=== PATIENT | male | born 1960 | race Caucasian/White ===

== ENCOUNTER 2017-02-13 07:42 | Outpatient (CLI) | payer OTHER ==
[~2017-02-13 07:42] MED LIST: DULO-31 PO; PANT40TA4 PO
[2017-02-13 08:13] LABS: BASOPHILS % (AUTO) 0.3 % (0-1); EOSINOPHILS # (AUTO) 0.6 X10'3 (0-0.9); EOSINOPHILS % (AUTO) 7.3 % (0-6); HEMATOCRIT 42.8 % (42.0-52.0); HEMOGLOBIN 14.4 g/dl (14.0-17.9); LYMPHOCYTES # (AUTO) 2.4 X10'3 (1.1-4.8); LYMPHOCYTES % (AUTO) 31.7 % (21-51); MEAN CORPUSCULAR HEMOGLOBIN 31.5 PG (27.0-31.0); MEAN CORPUSCULAR HGB CONC 33.5 % (33.0-36.5); MEAN CORPUSCULAR VOLUME 93.8 FL (78-98); MEAN PLATELET VOLUME 8.4 FL (7.4-10.4); MONOCYTES # (AUTO) 0.6 X10'3 (0-0.9); MONOCYTES % (AUTO) 7.6 % (2-12); NEUTROPHILS % (AUTO) 53.1 % (42-75); PLATELET COUNT 263 X10'3 (140-440); RED BLOOD COUNT 4.56 X10'6 (4.70-6.10); RED CELL DISTRIBUTION WIDTH 12.7 % (11.5-14.5); WHITE BLOOD COUNT 7.6 X10'3 (4.5-11.0)
[2017-02-13 08:28] LABS: CLARITY,URINE CLEAR (Clear); COLOR,URINE YELLOW (Yellow); GLUCOSE, URINE NEGATIVE (Neg); KETONES,URINE NEGATIVE (Neg); LEUKOCYTE ESTERASE ,URINE NEGATIVE (Neg); NITRITES, URINE NEGATIVE (Neg); OCCULT BLOOD,URINE NEGATIVE (Neg); PROTEIN,URINE NEGATIVE (Neg); UROBILINOGEN,URINE 0.2 E.U/dL (0.2-1.0)
[2017-02-13 08:30] LABS: UA COLLECTION TYPE NON-SPECIFIED
[2017-02-13 08:47] LABS: ALANINE AMINOTRANSFERASE 66 U/L (12-78); ALBUMIN 4.1 G/DL (3.4-5.0); ALBUMIN/GLOBULIN RATIO 1.1 (1.1-1.5); ALKALINE PHOSPHATASE 74 IU/L (46-116); ANION GAP 11 (8-16); ASPARTATE AMINO TRANSFERASE 41 U/L (10-37); BILIRUBIN,TOTAL 0.6 MG/DL (0.1-1.0); BLOOD UREA NITROGEN 15 MG/DL (7-18); BUN/CREATININE RATIO 12.6 (5.4-32.0); CALCIUM 9.4 MG/DL (8.5-10.1); CHLORIDE 104 MMOL/L (99-107); CHOLESTEROL 244 MG/DL (0-200); CREATININE 1.19 MG/DL (0.60-1.10); GLUCOSE 143 MG/DL (70-104); HDL CHOLESTEROL 41 MG/DL (35-60); LDL CHOLESTEROL 166 MG/DL (50-100); POTASSIUM 3.9 MMOL/L (3.5-5.1); SODIUM 141 MMOL/L (135-145); TOTAL CARBON DIOXIDE 25.8 MMOL/L (24-32); TOTAL PROTEIN 7.9 G/DL (6.4-8.2); TRIGLYCERIDES 232 MG/DL (20-135); eGFR 63 ML/MIN
[2017-02-14 13:11] LABS: MICROALB/CRT, RATIO 10.5 mg/g creat (0.0-30.0)
[2017-02-19] MEDS ORDERED: CELE200C PO (09:58)
[2017-02-19] MEDS ORDERED: METF500T7 PO (09:58)
== END 2017-02-13 23:59 | disposition home or self-care (01) ==
LOC: LAB 07:42
PROVIDERS: ATTEND Family Medicine
DX: E11.9 Type 2 diabetes mellitus without complications (principal); K42.9 Umbilical hernia without obstruction or gangrene; E29.1 Testicular hypofunction; J45.909 Unspecified asthma, uncomplicated
CPT/HCPCS: 36415; 80053; 80061; 81003; 82043; 82570; 83036; 84402; 84403; 84439; 84443; 85025; 85610; 87088

== ENCOUNTER 2017-02-20 05:54 | Day surgery (SDC) | payer OTHER ==
[~2017-02-20] VITALS: Ht 172.7 cm; Wt 83.9 kg
[2017-02-20] VITALS (14 sets, daily range): BP systolic 124–183; BP diastolic 75–119
[~2017-02-20 05:54] MED LIST changes: +CELE200C PO; +METF500T7 PO; +cefazolin/dext.iso 2gm/50ml 50 ML IV ONE; +famotidine 20mg tablet PO ONE; +ringers solution, lacted 1,000 ML IV SCH
[2017-02-20] MEDS ORDERED: BUPIVAcaine/PF 2.5 mg/ml (0.25%) 30ml vial ONE (06:11)
[2017-02-20] MEDS ORDERED: ceFAZolin 1000mg inj ONE ×2 (06:11→06:19)
[2017-02-20] MEDS ORDERED: midazolam 2 mg/2 ml injection ONE (06:44)
[2017-02-20] MEDS ORDERED: fentaNYL /PF 50mcg/ml 5ml ampule ONE (06:45)
[2017-02-20] MEDS ORDERED: propofol inj 20 ML IV ONE (06:47)
[2017-02-20] MEDS ORDERED: dexamethasone sod phosphate 4mg/ml inj. ONE (06:47)
[2017-02-20] MEDS ORDERED: neostigmine methylsulfate 1 MG/ML 10ml vial ONE (06:47)
[2017-02-20] MEDS ORDERED: rocuronium 10mg/ml inj IV ONE (06:47)
[2017-02-20] MEDS ORDERED: LIDOcaine 2% (20mg/ml) 5ml vial ONE (06:47)
[2017-02-20] MEDS ORDERED: glycopyrrolate 0.2mg/ml inj ONE (06:47)
[2017-02-20] MEDS ORDERED: ringers solution, lacted 1,000 ML IV SCH (06:51)
[2017-02-20] MEDS ORDERED: sevoflurane 250ml liquid IH ONE (06:53)
[2017-02-20] MEDS ORDERED: hydrALAZINE 20mg/ml inj. IV PRN (06:55)
[2017-02-20] MEDS ORDERED: ondansetron/PF 4mg/2ml inj IV PRN (06:55)
[2017-02-20] MEDS ORDERED: labetalol 5mg/ml 20ml inj. IV PRN (06:55)
[2017-02-20] MEDS ORDERED: morphine sulfate 8 MG/ML SYRINGE IV PRN (06:55)
[2017-02-20] MEDS ORDERED: ondansetron/PF 4mg/2ml inj ONE (07:10)
[2017-02-20] MEDS ORDERED: cefazolin/dext.iso 2gm/50ml 50 ML IV ONE (07:19)
[2017-02-20] MEDS ORDERED: diphenhydrAMINE 50 mg/ml inj IM ONE (09:45)
[2017-02-20] MEDS ORDERED: labetalol 20mg/4ml (5mg/ml) syringe IV PRN (09:46)
== END 2017-02-20 11:30 | disposition home or self-care (01) ==
LOC: PAS 05:54
PROVIDERS: ATTEND Surgery
DX: K42.9 Umbilical hernia without obstruction or gangrene (principal); E11.9 Type 2 diabetes mellitus without complications; K21.9 Gastro-esophageal reflux disease without esophagitis; G47.33 Obstructive sleep apnea (adult) (pediatric); I10 Essential (primary) hypertension; E66.9 Obesity, unspecified; Z88.8 Allergy status to other drugs, medicaments and biological substances; Z98.890 Other specified postprocedural states; Z80.3 Family history of malignant neoplasm of breast; Z68.28 Body mass index [BMI] 28.0-28.9, adult; Z79.84 Long term (current) use of oral hypoglycemic drugs; Z79.899 Other long term (current) drug therapy
CPT/HCPCS: 49585; 82948; C1713; C1758; C1781; J0690; J1100; J1200; J2001; J2250; J2270; J2405; J2704; J2710; J3010; J3490; J7120; A7000

== ENCOUNTER 2017-08-14 14:02 | Outpatient (CLI) | payer OTHER ==
[~2017-08-14 14:02] MED LIST changes: -cefazolin/dext.iso 2gm/50ml 50 ML IV ONE; -famotidine 20mg tablet PO ONE; -ringers solution, lacted 1,000 ML IV SCH
== END 2017-08-14 23:59 | disposition home or self-care (01) ==
LOC: RAD 14:02
PROVIDERS: ATTEND Family Medicine
DX: M50.21 Other cervical disc displacement, high cervical region (principal); R90.82 White matter disease, unspecified; I10 Essential (primary) hypertension; E11.9 Type 2 diabetes mellitus without complications; J45.909 Unspecified asthma, uncomplicated
CPT/HCPCS: 70551; 72141

== ENCOUNTER → 2017-10-16 | Outpatient (CLI) | payer OTHER ==
[2017-10-16 09:02] LABS: BASOPHILS % (AUTO) 0.5 % (0-1); EOSINOPHILS # (AUTO) 0.6 X10'3 (0-0.9); EOSINOPHILS % (AUTO) 8.2 % (0-6); HEMATOCRIT 41.3 % (42.0-52.0); HEMOGLOBIN 14.3 g/dl (14.0-17.9); LYMPHOCYTES # (AUTO) 1.7 X10'3 (1.1-4.8); LYMPHOCYTES % (AUTO) 22.8 % (21-51); MEAN CORPUSCULAR HEMOGLOBIN 32.1 PG (27.0-31.0); MEAN CORPUSCULAR HGB CONC 34.5 % (33.0-36.5); MEAN CORPUSCULAR VOLUME 93.1 FL (78-98); MEAN PLATELET VOLUME 8.5 FL (7.4-10.4); MONOCYTES # (AUTO) 0.5 X10'3 (0-0.9); MONOCYTES % (AUTO) 6.8 % (2-12); NEUTROPHILS # (AUTO) 4.5 X10'3 (1.8-7.7); NEUTROPHILS % (AUTO) 61.7 % (42-75); PLATELET COUNT 259 X10'3 (140-440); RED BLOOD COUNT 4.44 X10'6 (4.70-6.10); RED CELL DISTRIBUTION WIDTH 13.3 % (11.5-14.5); WHITE BLOOD COUNT 7.3 X10'3 (4.5-11.0)
[2017-10-16 09:33] LABS: HEMOGLOBIN A1C 6.9 % (4.5-6.2)
[2017-10-16 09:50] LABS: ALANINE AMINOTRANSFERASE 78 U/L (12-78); ALBUMIN 3.9 G/DL (3.4-5.0); ALBUMIN/GLOBULIN RATIO 1.1 (1.1-1.5); ALKALINE PHOSPHATASE 83 IU/L (46-116); ANION GAP 9 (8-16); ASPARTATE AMINO TRANSFERASE 56 U/L (10-37); BILIRUBIN,TOTAL 0.5 MG/DL (0.1-1.0); BLOOD UREA NITROGEN 11 MG/DL (7-18); BUN/CREATININE RATIO 9.2 (5.4-32.0); CALCIUM 9.3 MG/DL (8.5-10.1); CHLORIDE 106 MMOL/L (99-107); CHOL/HDL RATIO 5.7 (0.00-4.99); CHOLESTEROL 240 MG/DL (0-200); CREATININE 1.19 MG/DL (0.60-1.10); GLUCOSE 147 MG/DL (70-104); HDL CHOLESTEROL 42 MG/DL (35-60); LDL CHOLESTEROL 169 MG/DL (50-100); PHOSPHORUS 2.9 MG/DL (2.3-4.5); POTASSIUM 4.1 MMOL/L (3.5-5.1); SODIUM 138 MMOL/L (135-145); TOTAL CARBON DIOXIDE 23.1 MMOL/L (24-32); TOTAL PROTEIN 7.5 G/DL (6.4-8.2); TRIGLYCERIDES 149 MG/DL (20-135); eGFR 63 ML/MIN
== END | disposition home or self-care (01) ==
LOC: LAB 08:29
PROVIDERS: ATTEND Family Medicine
DX: E11.9 Type 2 diabetes mellitus without complications (principal); E29.1 Testicular hypofunction; I10 Essential (primary) hypertension; J45.909 Unspecified asthma, uncomplicated; Z80.42 Family history of malignant neoplasm of prostate; Z98.890 Other specified postprocedural states
CPT/HCPCS: 36415; 80053; 80061; 83036; 84100; 84153; 84402; 84403; 84439; 84443; 84550; 85025; 86140

== ENCOUNTER 2018-03-03 02:26 | Inpatient (IN) | payer OTHER | END 2018-03-08 16:20 | disposition home or self-care (01) | LOC: ER 02:26 → MED 3N 03-07 10:35 → ED HOLD 04:19 → CICU 2S 05:57 | PROC: 0212093 Bypass Coronary Artery, Three Arteries from Coronary Artery with Autologous Venous Tissue, Open Approach (ICD-10-PCS; principal; 2018-03-03 07:15) | PROC: 02100Z9 Bypass Coronary Artery, One Artery from Left Internal Mammary, Open Approach (ICD-10-PCS; 2018-03-03 07:15) | PROC: 06BP4ZZ Excision of Right Saphenous Vein, Percutaneous Endoscopic Approach (ICD-10-PCS; 2018-03-03 07:15) | DX: I21.4 Non-ST elevation (NSTEMI) myocardial infarction (principal); I25.110 Atherosclerotic heart disease of native coronary artery with unstable angina pectoris; E11.9 Type 2 diabetes mellitus without complications; E86.0 Dehydration ==

== ENCOUNTER 2018-03-21 15:57 | Emergency (ER) | payer OTHER ==
[~2018-03-21] VITALS: Ht 172.7 cm; Wt 75.0 kg
[~2018-03-21 15:57] MED LIST changes: +ACET-1 PO; +ASPI-1071 PO; +COL100C PO; +COR3.125T PO; +LISI-604 PO
[2018-03-21 16:20] VITALS: BP 103/75
[2018-03-21 16:23] LABS: BASOPHILS % (AUTO) 0.3 % (0-1); EOSINOPHILS # (AUTO) 0.5 X10'3 (0-0.9); EOSINOPHILS % (AUTO) 5.9 % (0-6); HEMATOCRIT 31.6 % (42.0-52.0); HEMOGLOBIN 10.4 g/dl (14.0-17.9); LYMPHOCYTES % (AUTO) 23.9 % (21-51); MEAN CORPUSCULAR HEMOGLOBIN 31.2 PG (27.0-31.0); MEAN CORPUSCULAR VOLUME 94.4 FL (78-98); MEAN PLATELET VOLUME 8.2 FL (7.4-10.4); MONOCYTES # (AUTO) 0.8 X10'3 (0-0.9); MONOCYTES % (AUTO) 9.3 % (2-12); NEUTROPHILS # (AUTO) 5.2 X10'3 (1.8-7.7); NEUTROPHILS % (AUTO) 60.6 % (42-75); PLATELET COUNT 544 X10'3 (140-440); RED BLOOD COUNT 3.35 X10'6 (4.70-6.10); RED CELL DISTRIBUTION WIDTH 15.9 % (11.5-14.5); WHITE BLOOD COUNT 8.6 X10'3 (4.5-11.0)
[2018-03-21 16:38] LABS: ALANINE AMINOTRANSFERASE 27 U/L (12-78); ALBUMIN 3.4 G/DL (3.4-5.0); ALBUMIN/GLOBULIN RATIO 0.9 (1.1-1.5); ALKALINE PHOSPHATASE 90 IU/L (46-116); ANION GAP 11 (8-16); ASPARTATE AMINO TRANSFERASE 16 U/L (10-37); BILIRUBIN,TOTAL 0.6 MG/DL (0.1-1.0); BLOOD UREA NITROGEN 14 MG/DL (7-18); BUN/CREATININE RATIO 12.3 (5.4-32.0); CALCIUM 9.4 MG/DL (8.5-10.1); CHLORIDE 104 MMOL/L (99-107); CREATININE 1.14 MG/DL (0.60-1.10); GLUCOSE 92 MG/DL (70-104); INR 1.1 INR; PARTIAL THROMBOPLASTIN TIME 30 SECONDS (22-32); POTASSIUM 4.1 MMOL/L (3.5-5.1); PROTHROMBIN TIME 10.8 SECONDS (9.0-12.0); SODIUM 137 MMOL/L (135-145); TOTAL CARBON DIOXIDE 21.9 MMOL/L (24-32); TOTAL PROTEIN 7.2 G/DL (6.4-8.2); eGFR 66 ML/MIN
[2018-03-22] MEDS ORDERED: CARV3.122 PO (14:21)
[2018-03-22] MEDS ORDERED: ASPI-1130 PO (14:23)
[2018-03-22] MEDS ORDERED: LISI2.5T2 PO (14:23)
[2018-03-23] MEDS ORDERED: FERR324T4 PO (14:54)
[2018-03-23] MEDS ORDERED: NITR0.4T51 SL (14:54)
== END 2018-03-21 17:15 | disposition home or self-care (01) ==
LOC: ER 15:57
DX: D64.9 Anemia, unspecified (principal); K62.5 Hemorrhage of anus and rectum; J45.909 Unspecified asthma, uncomplicated; E11.9 Type 2 diabetes mellitus without complications; Z88.5 Allergy status to narcotic agent; Z79.84 Long term (current) use of oral hypoglycemic drugs; Z79.82 Long term (current) use of aspirin; Z79.899 Other long term (current) drug therapy; Z98.890 Other specified postprocedural states
CPT/HCPCS: 36415; 80053; 85025; 85610; 85730; 99283

== ENCOUNTER 2018-03-22 09:50 | Inpatient (IN) | payer OTHER | END 2018-03-23 15:54 | disposition home or self-care (01) | LOC: ER 09:50 → ED HOLD 11:19 → MED 3N 13:22 ==

== ENCOUNTER 2018-03-29 10:05 | Outpatient (CLI) | payer OTHER ==
[~2018-03-29 10:05] MED LIST changes: -ASPI-1071 PO; +ASPI-1130 PO; +CARV3.122 PO; -CELE200C PO; -COL100C PO; -COR3.125T PO; +FERR324T4 PO; -LISI-604 PO; +LISI2.5T2 PO; +NITR0.4T51 SL
[2018-03-29 10:40] LABS: BASOPHILS % (AUTO) 0.3 % (0-1); EOSINOPHILS % (AUTO) 12.3 % (0-6); HEMATOCRIT 34.5 % (42.0-52.0); HEMOGLOBIN 11.4 g/dl (14.0-17.9); LYMPHOCYTES # (AUTO) 1.8 X10'3 (1.1-4.8); LYMPHOCYTES % (AUTO) 22.8 % (21-51); MEAN CORPUSCULAR HEMOGLOBIN 30.9 PG (27.0-31.0); MEAN CORPUSCULAR HGB CONC 33.1 % (33.0-36.5); MEAN CORPUSCULAR VOLUME 93.1 FL (78-98); MEAN PLATELET VOLUME 8.2 FL (7.4-10.4); MONOCYTES # (AUTO) 0.5 X10'3 (0-0.9); MONOCYTES % (AUTO) 6.8 % (2-12); NEUTROPHILS # (AUTO) 4.5 X10'3 (1.8-7.7); NEUTROPHILS % (AUTO) 57.8 % (42-75); PLATELET COUNT 478 X10'3 (140-440); RED BLOOD COUNT 3.71 X10'6 (4.70-6.10); WHITE BLOOD COUNT 7.8 X10'3 (4.5-11.0)
[2018-03-29 11:10] LABS: % IRON SATURATION 13 % (11-46); IRON 45 UG/DL (53-167); TOTAL IRON BINDING CAPACITY 359 UG/DL (259-388)
[2018-03-29 11:17] LABS: ALANINE AMINOTRANSFERASE 26 U/L (12-78); ALBUMIN 3.5 G/DL (3.4-5.0); ALBUMIN/GLOBULIN RATIO 0.9 (1.1-1.5); ALKALINE PHOSPHATASE 91 IU/L (46-116); ANION GAP 11 (8-16); ASPARTATE AMINO TRANSFERASE 16 U/L (10-37); BILIRUBIN,TOTAL 0.5 MG/DL (0.1-1.0); BLOOD UREA NITROGEN 14 MG/DL (7-18); BUN/CREATININE RATIO 13.5 (5.4-32.0); CALCIUM 9.5 MG/DL (8.5-10.1); CHLORIDE 104 MMOL/L (99-107); CHOL/HDL RATIO 3.8 (0.00-4.99); CHOLESTEROL 183 MG/DL (0-200); CREATININE 1.04 MG/DL (0.60-1.10); GLUCOSE 115 MG/DL (70-104); HDL CHOLESTEROL 48 MG/DL (35-60); LDL CHOLESTEROL 114 MG/DL (50-100); POTASSIUM 4.1 MMOL/L (3.5-5.1); SODIUM 139 MMOL/L (135-145); TOTAL CARBON DIOXIDE 24.5 MMOL/L (24-32); TOTAL PROTEIN 7.6 G/DL (6.4-8.2); TRIGLYCERIDES 142 MG/DL (20-135); eGFR 73 ML/MIN
[2018-03-29 11:47] LABS: FERRITIN 159 NG/ML (26-388)
[2018-03-30 08:17] LABS: TRANSFERRIN 280 mg/dL (200-370)
[2018-03-31 09:16] LABS: TESTOSTERONE, FREE, DIRECT 2.4 pg/mL (7.2-24.0)
== END 2018-03-29 23:59 | disposition home or self-care (01) ==
LOC: LAB 10:05
PROVIDERS: ATTEND Family Medicine
DX: E78.5 Hyperlipidemia, unspecified (principal); I10 Essential (primary) hypertension; E11.9 Type 2 diabetes mellitus without complications; D50.0 Iron deficiency anemia secondary to blood loss (chronic); I25.2 Old myocardial infarction; J45.909 Unspecified asthma, uncomplicated; R53.82 Chronic fatigue, unspecified; Z98.890 Other specified postprocedural states; Z88.5 Allergy status to narcotic agent
CPT/HCPCS: 36415; 80053; 80061; 82728; 83540; 83550; 84402; 84403; 84439; 84443; 84466; 85025

== ENCOUNTER 2018-03-30 08:00 | Outpatient (CLI) | payer OTHER | END 2018-03-30 23:59 | disposition home or self-care (01) | LOC: DIABETIC 08:00 → EDSTATUS 12:20 → DIABETIC 23:59 | PROVIDERS: ATTEND Family Medicine | DX: E11.9 Type 2 diabetes mellitus without complications (principal); Z95.1 Presence of aortocoronary bypass graft; R53.83 Other fatigue | CPT/HCPCS: G0108 ==

== ENCOUNTER 2018-03-31 10:14 | Outpatient (CLI) | payer OTHER | END 2018-03-31 23:59 | disposition home or self-care (01) | LOC: CARD DIAG 10:14 | PROVIDERS: ATTEND Internal Medicine Interventional Cardiology | DX: I34.0 Nonrheumatic mitral (valve) insufficiency (principal); I25.10 Atherosclerotic heart disease of native coronary artery without angina pectoris; J45.909 Unspecified asthma, uncomplicated; E11.9 Type 2 diabetes mellitus without complications; Z79.82 Long term (current) use of aspirin; Z79.84 Long term (current) use of oral hypoglycemic drugs | CPT/HCPCS: 93306 ==

== ENCOUNTER 2018-08-13 09:20 | Outpatient (CLI) | payer OTHER ==
[2018-08-13 09:57] LABS: CHOL/HDL RATIO 1.8 (0.00-4.99); CHOLESTEROL 113 MG/DL (0-200); HDL CHOLESTEROL 64 MG/DL (35-60); LDL CHOLESTEROL 37 MG/DL (50-100); TRIGLYCERIDES 174 MG/DL (20-135)
== END 2018-08-13 23:59 | disposition home or self-care (01) ==
LOC: LAB 09:20
DX: E78.5 Hyperlipidemia, unspecified (principal)
CPT/HCPCS: 36415; 80061

== ENCOUNTER 2019-04-22 08:09 | Outpatient (CLI) | payer OTHER ==
[~2019-04-22 08:09] MED LIST changes: +METF500T20 PO; -METF500T7 PO
[2019-04-22 08:49] LABS: BASOPHILS % (AUTO) 0.5 % (0-1); EOSINOPHILS # (AUTO) 0.7 X10'3 (0-0.9); EOSINOPHILS % (AUTO) 9.8 % (0-6); HEMATOCRIT 40.1 % (42.0-52.0); HEMOGLOBIN 13.2 g/dl (14.0-17.9); LYMPHOCYTES # (AUTO) 2.2 X10'3 (1.1-4.8); LYMPHOCYTES % (AUTO) 29.7 % (21-51); MEAN CORPUSCULAR HEMOGLOBIN 30.7 PG (27.0-31.0); MEAN PLATELET VOLUME 8.3 FL (7.4-10.4); MONOCYTES # (AUTO) 0.4 X10'3 (0-0.9); MONOCYTES % (AUTO) 5.6 % (2-12); NEUTROPHILS % (AUTO) 54.4 % (42-75); PLATELET COUNT 255 X10'3 (140-440); RED BLOOD COUNT 4.31 X10'6 (4.70-6.10); WHITE BLOOD COUNT 7.3 X10'3 (4.5-11.0)
[2019-04-22 09:05] LABS: ALANINE AMINOTRANSFERASE 18 U/L (12-78); ALBUMIN 4.2 G/DL (3.4-5.0); ALBUMIN/GLOBULIN RATIO 1.3 (1.1-1.5); ALKALINE PHOSPHATASE 69 IU/L (46-116); ANION GAP 7 (8-16); ASPARTATE AMINO TRANSFERASE 12 U/L (10-37); BLOOD UREA NITROGEN 11 MG/DL (7-18); BUN/CREATININE RATIO 9.1 (5.4-32.0); CALCIUM 9.2 MG/DL (8.5-10.1); CHLORIDE 107 MMOL/L (99-107); CHOL/HDL RATIO 2.6 (0.00-4.99); CHOLESTEROL 138 MG/DL (0-200); CREATININE 1.21 MG/DL (0.60-1.10); GLUCOSE 189 MG/DL (70-104); HDL CHOLESTEROL 54 MG/DL (35-60); LDL CHOLESTEROL 60 MG/DL (50-100); POTASSIUM 4.2 MMOL/L (3.5-5.1); SODIUM 141 MMOL/L (135-145); TOTAL CARBON DIOXIDE 26.9 MMOL/L (24-32); TOTAL PROTEIN 7.4 G/DL (6.4-8.2); TRIGLYCERIDES 214 MG/DL (20-135); eGFR 61 ML/MIN
[2019-04-22 09:08] LABS: HEMOGLOBIN A1C 5.8 % (4.5-6.2)
== END 2019-04-22 23:59 | disposition home or self-care (01) ==
LOC: LAB 08:09
PROVIDERS: ATTEND Family Medicine
DX: E11.9 Type 2 diabetes mellitus without complications (principal); I10 Essential (primary) hypertension; E78.5 Hyperlipidemia, unspecified; K21.9 Gastro-esophageal reflux disease without esophagitis; R53.83 Other fatigue
CPT/HCPCS: 36415; 80053; 80061; 83036; 84402; 84403; 84439; 84443; 85025

== ENCOUNTER 2019-06-23 12:44 | Emergency (ER) | payer OTHER ==
[~2019-06-23] VITALS: Ht 172.7 cm; Wt 80.5 kg
[2019-06-23] MEDS ORDERED: aspirin 325mg tablet PO ONE (12:50)
[2019-06-23] MEDS ORDERED: nitroGLYCERIN 0.4mg SUBLingual tab SL PRN (13:05)
[2019-06-23] MEDS ORDERED: ondansetron/PF 4mg/2ml inj IV ONE ×2 (13:25)
[2019-06-23 14:13] LABS: BASOPHILS % (AUTO) 0.4 % (0-1); EOSINOPHILS # (AUTO) 0.7 X10'3 (0-0.9); EOSINOPHILS % (AUTO) 8.7 % (0-6); HEMATOCRIT 37.3 % (42.0-52.0); HEMOGLOBIN 12.3 g/dl (14.0-17.9); LYMPHOCYTES # (AUTO) 1.8 X10'3 (1.1-4.8); MEAN CORPUSCULAR HEMOGLOBIN 31.7 PG (27.0-31.0); MEAN CORPUSCULAR HGB CONC 33.1 g/dL (33.0-36.5); MEAN CORPUSCULAR VOLUME 95.9 FL (78-98); MEAN PLATELET VOLUME 8.4 FL (7.4-10.4); MONOCYTES # (AUTO) 0.6 X10'3 (0-0.9); MONOCYTES % (AUTO) 7.4 % (2-12); NEUTROPHILS # (AUTO) 4.8 X10'3 (1.8-7.7); NEUTROPHILS % (AUTO) 60.5 % (42-75); PLATELET COUNT 221 X10'3 (140-440); RED BLOOD COUNT 3.89 X10'6 (4.70-6.10); RED CELL DISTRIBUTION WIDTH 13.5 % (11.5-14.5)
[2019-06-23] MEDS ORDERED: famotidine/PF 10 mg/ml inj IV ONE (14:15)
[2019-06-23] MEDS ORDERED: LIDOcaine Viscous 15ml cup MM PRN (14:15)
[2019-06-23] MEDS ORDERED: pantoprazole 40 MG vial IV ONE (14:15)
[2019-06-23] MEDS ORDERED: sucralfate 1gm/10ml UD suspension PO SCH (14:15)
[2019-06-23] MEDS ORDERED: mag hydrox/Alum hydrox/simeth 30ml oral suspension PO ONE (14:15)
--- NOTE | 2019-06-23 14:15 | NUR ---
Dr. Sabillon made aware Pt c/o epigastric pain, denies HUBERT. to enter orders for Pepcid, Protonix and GI cocktail.
[2019-06-23 14:25] LABS: ALANINE AMINOTRANSFERASE 22 U/L (12-78); ALBUMIN 3.8 G/DL (3.4-5.0); ALBUMIN/GLOBULIN RATIO 1.2 (1.1-1.5); ALKALINE PHOSPHATASE 67 IU/L (46-116); ANION GAP 6 (8-16); ASPARTATE AMINO TRANSFERASE 18 U/L (10-37); BILIRUBIN,TOTAL 0.8 MG/DL (0.1-1.0); BLOOD UREA NITROGEN 15 MG/DL (7-18); CALCIUM 9.3 MG/DL (8.5-10.1); CHLORIDE 109 MMOL/L (99-107); CREATININE 1.15 MG/DL (0.60-1.10); GLUCOSE 108 MG/DL (70-104); LIPASE 209 U/L (73-393); POTASSIUM 4.4 MMOL/L (3.5-5.1); SODIUM 141 MMOL/L (135-145); TOTAL CARBON DIOXIDE 25.9 MMOL/L (24-32); TOTAL PROTEIN 6.9 G/DL (6.4-8.2); eGFR 65 ML/MIN
[2019-06-23 15:27] LABS: CHOL/HDL RATIO 1.9 (0.00-4.99); CHOLESTEROL 93 MG/DL (0-200); HDL CHOLESTEROL 48 MG/DL (35-60); LDL CHOLESTEROL 31 MG/DL (50-100); TRIGLYCERIDES 118 MG/DL (20-135)
--- NOTE | 2019-06-23 15:43 | NUR ---
Pt reports feeling better, no pain at this time. Pt ambulated to restroom unassisted and in no obvious distress.
--- NOTE | 2019-06-23 16:09 | NUR ---
Blood drawn from IV for 3 hr. troponin.
[2019-06-23 17:10] VITALS: BP 125/75
== END 2019-06-23 17:05 | disposition home or self-care (01) ==
LOC: ER 12:45 → EEVIPCON 12:45 → ER 17:05
DX: R10.13 Epigastric pain (principal); K21.9 Gastro-esophageal reflux disease without esophagitis; I25.10 Atherosclerotic heart disease of native coronary artery without angina pectoris; I25.2 Old myocardial infarction; J45.909 Unspecified asthma, uncomplicated; E11.9 Type 2 diabetes mellitus without complications; Z95.1 Presence of aortocoronary bypass graft; Z98.890 Other specified postprocedural states; Z88.5 Allergy status to narcotic agent; Z79.82 Long term (current) use of aspirin; Z79.899 Other long term (current) drug therapy
CPT/HCPCS: 36415; 71045; 76700; 80053; 80061; 83690; 84484; 85025; 93005; 96374; 96375; 99285; C9113; J2405; J3490

== ENCOUNTER 2019-11-13 11:20 | Emergency (ER) | payer OTHER ==
[~2019-11-13] VITALS: Ht 172.7 cm; Wt 79.5 kg
[~2019-11-13 11:20] MED LIST changes: -ASPI-1130 PO; +ASPI-1397 PO; +METF-900 PO; -METF500T20 PO; -PANT40TA4 PO; +PANT40TA54 PO
[2019-11-13 11:26] VITALS: BP 111/85
== END 2019-11-13 11:46 | disposition home or self-care (01) ==
LOC: ER 11:21
DX: B34.9 Viral infection, unspecified (principal); Z20.828 Contact with and (suspected) exposure to other viral communicable diseases; J02.9 Acute pharyngitis, unspecified; M79.10 Myalgia, unspecified site; R05 Cough; I25.10 Atherosclerotic heart disease of native coronary artery without angina pectoris; I25.2 Old myocardial infarction; J45.909 Unspecified asthma, uncomplicated; E11.9 Type 2 diabetes mellitus without complications; Z95.1 Presence of aortocoronary bypass graft; Z98.890 Other specified postprocedural states; Z88.5 Allergy status to narcotic agent
CPT/HCPCS: 87635; 99283; C9803

== ENCOUNTER 2020-04-04 09:07 | Outpatient (CLI) | payer BC ==
[~2020-04-04] VITALS: Ht 172.7 cm; Wt 81.8 kg
[2020-04-04 10:58] VITALS: BP 126/71
[2020-04-04 11:02] VITALS: BP 110/72
[2020-04-04 11:05] VITALS: BP 126/79
[2020-04-04 11:08] VITALS: BP 171/93
[2020-04-04 11:09] VITALS: BP 172/98
[2020-04-04 11:10] VITALS: BP 140/64
== END 2020-04-04 23:59 | disposition home or self-care (01) ==
LOC: RAD 09:07
PROVIDERS: ATTEND Internal Medicine Cardiovascular Disease
DX: I34.8 Other nonrheumatic mitral valve disorders (principal); I25.10 Atherosclerotic heart disease of native coronary artery without angina pectoris; E78.5 Hyperlipidemia, unspecified; I21.9 Acute myocardial infarction, unspecified
CPT/HCPCS: 78452; 93017; 93306; A9500

== ENCOUNTER 2020-06-22 08:08 | Outpatient (CLI) | payer BC ==
[2020-06-22 08:33] LABS: BASOPHILS % (AUTO) 0.4 % (0-1); EOSINOPHILS # (AUTO) 0.5 X10'3 (0-0.9); EOSINOPHILS % (AUTO) 7.3 % (0-6); HEMATOCRIT 37.7 % (42.0-52.0); HEMOGLOBIN 12.6 g/dl (14.0-17.9); LYMPHOCYTES # (AUTO) 2.2 X10'3 (1.1-4.8); LYMPHOCYTES % (AUTO) 32.5 % (21-51); MEAN CORPUSCULAR HEMOGLOBIN 31.9 PG (27.0-31.0); MEAN CORPUSCULAR HGB CONC 33.3 g/dL (33.0-36.5); MEAN CORPUSCULAR VOLUME 95.7 FL (78-98); MEAN PLATELET VOLUME 7.7 FL (7.4-10.4); MONOCYTES # (AUTO) 0.5 X10'3 (0-0.9); NEUTROPHILS # (AUTO) 3.4 X10'3 (1.8-7.7); NEUTROPHILS % (AUTO) 51.8 % (42-75); PLATELET COUNT 274 X10'3 (140-440); RED BLOOD COUNT 3.94 X10'6 (4.70-6.10); RED CELL DISTRIBUTION WIDTH 13.1 % (11.5-14.5); WHITE BLOOD COUNT 6.6 X10'3 (4.5-11.0)
[2020-06-22 09:00] LABS: ALANINE AMINOTRANSFERASE 27 U/L (12-78); ALBUMIN/GLOBULIN RATIO 1.3 (1.1-1.5); ALKALINE PHOSPHATASE 75 IU/L (46-116); ANION GAP 8 (8-16); ASPARTATE AMINO TRANSFERASE 14 U/L (10-37); BLOOD UREA NITROGEN 11 MG/DL (7-18); BUN/CREATININE RATIO 9.7 (5.4-32.0); CALCIUM 9.4 MG/DL (8.5-10.1); CHLORIDE 107 MMOL/L (99-107); CHOL/HDL RATIO 1.8 (0.00-4.99); CHOLESTEROL 96 MG/DL (0-200); CREATININE 1.13 MG/DL (0.60-1.10); GLUCOSE 127 MG/DL (70-104); HDL CHOLESTEROL 54 MG/DL (35-60); LDL CHOLESTEROL 32 MG/DL (50-100); POTASSIUM 4.1 MMOL/L (3.5-5.1); SODIUM 141 MMOL/L (135-145); TOTAL CARBON DIOXIDE 26.5 MMOL/L (24-32); TOTAL PROTEIN 7.2 G/DL (6.4-8.2); TRIGLYCERIDES 125 MG/DL (20-135); eGFR 66 ML/MIN
== END 2020-06-22 23:59 | disposition home or self-care (01) ==
LOC: LAB 08:08
PROVIDERS: ATTEND Family Medicine
DX: I10 Essential (primary) hypertension (principal); E11.9 Type 2 diabetes mellitus without complications; E78.5 Hyperlipidemia, unspecified; K21.9 Gastro-esophageal reflux disease without esophagitis; R53.83 Other fatigue
CPT/HCPCS: 80053; 80061; 83036; 84439; 84443; 85025

== ENCOUNTER 2021-02-08 08:07 | Outpatient (CLI) | payer BC ==
[~2021-02-08 08:07] MED LIST changes: +LISI2.5T14 PO; -LISI2.5T2 PO
[2021-02-08 08:56] LABS: BASOPHILS % (AUTO) 0.4 % (0-1); EOSINOPHILS # (AUTO) 0.6 X10'3 (0-0.9); EOSINOPHILS % (AUTO) 8.6 % (0-6); HEMOGLOBIN 12.4 g/dl (14.0-17.9); LYMPHOCYTES # (AUTO) 2.1 X10'3 (1.1-4.8); LYMPHOCYTES % (AUTO) 31.4 % (21-51); MEAN CORPUSCULAR HEMOGLOBIN 31.5 PG (27.0-31.0); MEAN CORPUSCULAR HGB CONC 33.4 g/dL (33.0-36.5); MEAN CORPUSCULAR VOLUME 94.2 FL (78-98); MEAN PLATELET VOLUME 8.2 FL (7.4-10.4); MONOCYTES # (AUTO) 0.5 X10'3 (0-0.9); MONOCYTES % (AUTO) 7.6 % (2-12); NEUTROPHILS # (AUTO) 3.5 X10'3 (1.8-7.7); PLATELET COUNT 265 X10'3 (140-440); RED BLOOD COUNT 3.93 X10'6 (4.70-6.10); RED CELL DISTRIBUTION WIDTH 13.7 % (11.5-14.5); WHITE BLOOD COUNT 6.6 X10'3 (4.5-11.0)
[2021-02-08 09:14] LABS: ALBUMIN 3.9 G/DL (3.4-5.0); ALBUMIN/GLOBULIN RATIO 1.2 (1.1-1.5); ALKALINE PHOSPHATASE 64 IU/L (46-116); ANION GAP 9 (8-16); BILIRUBIN,TOTAL 0.3 MG/DL (0.1-1.0); BLOOD UREA NITROGEN 13 MG/DL (7-18); BUN/CREATININE RATIO 10.4 (5.4-32.0); CALCIUM 9.2 MG/DL (8.5-10.1); CHLORIDE 109 MMOL/L (99-107); CREATININE 1.25 MG/DL (0.60-1.10); GLUCOSE 133 MG/DL (70-104); HDL CHOLESTEROL 54 MG/DL (35-60); LDL CHOLESTEROL 36 MG/DL (50-100); POTASSIUM 4.1 MMOL/L (3.5-5.1); SODIUM 144 MMOL/L (135-145); TOTAL CARBON DIOXIDE 25.7 MMOL/L (24-32); TOTAL PROTEIN 7.2 G/DL (6.4-8.2); eGFR 59 ML/MIN
[2021-02-08 09:16] LABS: ASPARTATE AMINO TRANSFERASE 0 U/L (10-37)
[2021-02-08 09:17] LABS: ALANINE AMINOTRANSFERASE < 6 U/L (12-78)
[2021-02-08 09:31] LABS: HEMOGLOBIN A1C 5.8 % (4.5-6.2)
[2021-02-08 12:07] LABS: CHOLESTEROL 107 MG/DL (0-200); TRIGLYCERIDES 139 MG/DL (20-135)
[2021-02-09 10:59] LABS: % FREE PSA 12.4 % (.); PSA, FREE 0.26 ng/mL
[2021-02-11 22:59] LABS: TESTOSTERONE, FREE, DIRECT 6.2 pg/mL (6.6-18.1)
== END 2021-02-08 23:59 | disposition home or self-care (01) ==
LOC: LAB 08:07
PROVIDERS: ATTEND Family Medicine
DX: E11.9 Type 2 diabetes mellitus without complications (principal); E78.5 Hyperlipidemia, unspecified; K21.9 Gastro-esophageal reflux disease without esophagitis; E29.1 Testicular hypofunction
CPT/HCPCS: 36415; 80053; 80061; 82306; 83036; 84153; 84154; 84402; 84403; 84439; 84443; 85025; 86706

== ENCOUNTER 2021-04-05 06:16 | Day surgery (SDC) | payer BC ==
[~2021-04-05] VITALS: Ht 172.7 cm; Wt 81.8 kg
[2021-04-05 06:27] VITALS: BP 142/85
[2021-04-05] MEDS ORDERED: fentaNYL/PF 50MCG/1 ML 2ML syringe ONE (06:30)
[2021-04-05] MEDS ORDERED: MIDAZolam 1 MG/ML 5ML VIAL ONE (06:30)
[2021-04-05] MEDS ORDERED: LIDOcaine Viscous 15ml cup ONE (06:37)
[2021-04-05] MEDS ORDERED: LOSA25TA96 PO (06:48)
[2021-04-05] MEDS ORDERED: diphenhydrAMINE 50 mg/ml inj ONE (06:52)
[2021-04-05 07:52] VITALS: BP 136/85
[2021-04-05 08:02] VITALS: BP 131/83
[2021-04-05 08:12] VITALS: BP 133/78
[2021-04-05 08:22] VITALS: BP 124/69
== END 2021-04-05 08:50 | disposition home or self-care (01) ==
LOC: GI LAB 06:16
PROVIDERS: ATTEND Internal Medicine Gastroenterology
DX: Z09 Encounter for follow-up examination after completed treatment for conditions other than malignant neoplasm (principal); R11.10 Vomiting, unspecified; K57.30 Diverticulosis of large intestine without perforation or abscess without bleeding; D12.4 Benign neoplasm of descending colon; D12.3 Benign neoplasm of transverse colon; K44.9 Diaphragmatic hernia without obstruction or gangrene; K22.89 Other specified disease of esophagus; K31.7 Polyp of stomach and duodenum; K29.50 Unspecified chronic gastritis without bleeding; K20.80 Other esophagitis without bleeding; J45.990 Exercise induced bronchospasm; E11.9 Type 2 diabetes mellitus without complications; Z95.1 Presence of aortocoronary bypass graft; Z88.5 Allergy status to narcotic agent; Z79.84 Long term (current) use of oral hypoglycemic drugs; Z79.899 Other long term (current) drug therapy
CPT/HCPCS: 43239; 45380; 45385; 99152; 99153; C1773; J1200; J2250; J3010; J7040; Z7512; A4620

== ENCOUNTER 2021-04-24 09:42 | Emergency (ER) | payer BC ==
[~2021-04-24] VITALS: Ht 172.7 cm; Wt 81.0 kg
[~2021-04-24 09:42] MED LIST changes: -FERR324T4 PO; -LISI2.5T14 PO; +LOSA25TA96 PO
[2021-04-24] MEDS ORDERED: iohexol 300mg/ml 100ml inj. ONE (10:04)
[2021-04-24 10:14] LABS: BASOPHILS % (AUTO) 0.3 % (0-1); EOSINOPHILS # (AUTO) 0.5 X10'3 (0-0.9); EOSINOPHILS % (AUTO) 6.8 % (0-6); HEMATOCRIT 39.3 % (42.0-52.0); HEMOGLOBIN 13.1 g/dl (14.0-17.9); LYMPHOCYTES # (AUTO) 1.7 X10'3 (1.1-4.8); LYMPHOCYTES % (AUTO) 26.2 % (21-51); MEAN CORPUSCULAR HEMOGLOBIN 31.7 PG (27.0-31.0); MEAN CORPUSCULAR HGB CONC 33.4 g/dL (33.0-36.5); MEAN CORPUSCULAR VOLUME 94.9 FL (78-98); MEAN PLATELET VOLUME 8.2 FL (7.4-10.4); MONOCYTES # (AUTO) 0.4 X10'3 (0-0.9); MONOCYTES % (AUTO) 6.1 % (2-12); NEUTROPHILS # (AUTO) 4.1 X10'3 (1.8-7.7); NEUTROPHILS % (AUTO) 60.6 % (42-75); PLATELET COUNT 285 X10'3 (140-440); RED BLOOD COUNT 4.15 X10'6 (4.70-6.10); RED CELL DISTRIBUTION WIDTH 13.7 % (11.5-14.5); WHITE BLOOD COUNT 6.7 X10'3 (4.5-11.0)
[2021-04-24 10:43] LABS: CLARITY,URINE CLEAR (Clear); COLOR,URINE YELLOW (Yellow); GLUCOSE, URINE NEGATIVE (Neg); KETONES,URINE NEGATIVE (Neg); LEUKOCYTE ESTERASE ,URINE NEGATIVE (Neg); NITRITES, URINE NEGATIVE (Neg); OCCULT BLOOD,URINE NEGATIVE (Neg); PROTEIN,URINE NEGATIVE (Neg); UROBILINOGEN,URINE 0.2 E.U/dL (0.2-1.0)
[2021-04-24 10:49] LABS: ALANINE AMINOTRANSFERASE 29 U/L (12-78); ALBUMIN 4.4 G/DL (3.4-5.0); ALBUMIN/GLOBULIN RATIO 1.2 (1.1-1.5); ANION GAP 9 (8-16); ASPARTATE AMINO TRANSFERASE 14 U/L (10-37); BILIRUBIN,TOTAL 0.8 MG/DL (0.1-1.0); BLOOD UREA NITROGEN 15 MG/DL (7-18); BUN/CREATININE RATIO 12.4 (5.4-32.0); CALCIUM 9.5 MG/DL (8.5-10.1); CHLORIDE 106 MMOL/L (99-107); CREATININE 1.21 MG/DL (0.60-1.10); GLUCOSE 125 MG/DL (70-104); LIPASE 158 U/L (73-393); POTASSIUM 4.7 MMOL/L (3.5-5.1); SODIUM 140 MMOL/L (135-145); TOTAL CARBON DIOXIDE 25.1 MMOL/L (24-32); eGFR 61 ML/MIN
[2021-04-24 10:50] LABS: UA COLLECTION TYPE URINAL
[2021-04-24 10:51] LABS: RBC,URINE NONE SEEN /HPF (0-2); WBC,URINE NONE SEEN /HPF (0-4)
[2021-04-24 10:52] LABS: BACTERIA,URINE NONE SEEN /HPF (Neg); MUCUS STRANDS MANY /LPF (Neg); SQUAMOUS EPITHELIAL CELL,UR NONE SEEN /LPF (FEW)
--- NOTE | 2021-04-24 10:59 | NUR ---
ATTEMPT EKG, PATIENT NOT CURRENTLY IN ROOM. WILL ATTEMPT AGAIN.
[2021-04-24 12:43] VITALS: BP 127/82
== END 2021-04-24 12:46 | disposition home or self-care (01) ==
LOC: ER 09:43 → EEVIPCON 09:43 → ER 12:46
DX: R10.84 Generalized abdominal pain (principal); R11.10 Vomiting, unspecified; I25.10 Atherosclerotic heart disease of native coronary artery without angina pectoris; I25.2 Old myocardial infarction; J45.909 Unspecified asthma, uncomplicated; E11.9 Type 2 diabetes mellitus without complications; Z98.890 Other specified postprocedural states; Z79.82 Long term (current) use of aspirin; Z79.899 Other long term (current) drug therapy
CPT/HCPCS: 36415; 74176; 80053; 81001; 83690; 84145; 84484; 85025; 93005; 99285; Q9967

== ENCOUNTER 2021-07-12 08:22 | Outpatient (CLI) | payer BC ==
[2021-07-12 08:55] LABS: BASOPHILS % (AUTO) 0.5 % (0-1); EOSINOPHILS # (AUTO) 0.5 X10'3 (0-0.9); EOSINOPHILS % (AUTO) 7.4 % (0-6); HEMATOCRIT 38.7 % (42.0-52.0); HEMOGLOBIN 12.7 g/dl (14.0-17.9); LYMPHOCYTES # (AUTO) 2.1 X10'3 (1.1-4.8); LYMPHOCYTES % (AUTO) 28.8 % (21-51); MEAN CORPUSCULAR HEMOGLOBIN 30.9 PG (27.0-31.0); MEAN CORPUSCULAR HGB CONC 32.9 g/dL (33.0-36.5); MEAN PLATELET VOLUME 8.3 FL (7.4-10.4); MONOCYTES # (AUTO) 0.5 X10'3 (0-0.9); MONOCYTES % (AUTO) 7.3 % (2-12); PLATELET COUNT 276 X10'3 (140-440); RED BLOOD COUNT 4.11 X10'6 (4.70-6.10); RED CELL DISTRIBUTION WIDTH 13.6 % (11.5-14.5); WHITE BLOOD COUNT 7.2 X10'3 (4.5-11.0)
[2021-07-12 08:55] LABS: CLARITY,URINE CLEAR (Clear); COLOR,URINE YELLOW (Yellow); GLUCOSE, URINE NEGATIVE (Neg); KETONES,URINE NEGATIVE (Neg); LEUKOCYTE ESTERASE ,URINE NEGATIVE (Neg); NITRITES, URINE NEGATIVE (Neg); OCCULT BLOOD,URINE NEGATIVE (Neg); PROTEIN,URINE NEGATIVE (Neg); UROBILINOGEN,URINE 0.2 E.U/dL (0.2-1.0)
[2021-07-12 08:57] LABS: UA COLLECTION TYPE CLN CATCH MIDSTREAM
[2021-07-12 09:05] LABS: ALANINE AMINOTRANSFERASE 29 U/L (12-78); ALBUMIN 3.9 G/DL (3.4-5.0); ALBUMIN/GLOBULIN RATIO 1.1 (1.1-1.5); ALKALINE PHOSPHATASE 59 IU/L (46-116); ASPARTATE AMINO TRANSFERASE 12 U/L (10-37); BILIRUBIN,TOTAL 0.5 MG/DL (0.1-1.0); BLOOD UREA NITROGEN 13 MG/DL (7-18); BUN/CREATININE RATIO 11.1 (5.4-32.0); CALCIUM 9.2 MG/DL (8.5-10.1); CHLORIDE 108 MMOL/L (99-107); CHOL/HDL RATIO 2.5 (0.00-4.99); CHOLESTEROL 131 MG/DL (0-200); CREATININE 1.17 MG/DL (0.60-1.10); GLUCOSE 144 MG/DL (70-104); HDL CHOLESTEROL 52 MG/DL (35-60); LDL CHOLESTEROL 58 MG/DL (50-100); POTASSIUM 4.2 MMOL/L (3.5-5.1); SODIUM 143 MMOL/L (135-145); TOTAL PROTEIN 7.3 G/DL (6.4-8.2); TRIGLYCERIDES 143 MG/DL (20-135); eGFR 63 ML/MIN
[2021-07-12 09:07] LABS: ANION GAP 8 (8-16); TOTAL CARBON DIOXIDE 26.6 MMOL/L (24-32)
[2021-07-12 09:16] LABS: HEMOGLOBIN A1C 6.1 % (4.5-6.2)
[2021-07-16 21:58] LABS: TESTOSTERONE, FREE, DIRECT 7.1 pg/mL (6.6-18.1)
== END 2021-07-12 23:59 | disposition home or self-care (01) ==
LOC: LAB 08:22
PROVIDERS: ATTEND Family Medicine
DX: E11.9 Type 2 diabetes mellitus without complications (principal); I10 Essential (primary) hypertension; E78.5 Hyperlipidemia, unspecified; R53.83 Other fatigue; K21.9 Gastro-esophageal reflux disease without esophagitis
CPT/HCPCS: 36415; 80053; 80061; 81003; 82043; 83036; 84402; 84403; 85025

== ENCOUNTER 2022-03-28 12:12 | Day surgery (SDC) | payer BC ==
[~2022-03-28] VITALS: Ht 172.7 cm; Wt 81.8 kg
[2022-03-28 12:15] VITALS: BP 132/85
[2022-03-28] MEDS ORDERED: LOSA25TA41 PO (12:22)
[2022-03-28] MEDS ORDERED: MIDAZolam 1 MG/ML 5ML VIAL ONE (12:39)
[2022-03-28] MEDS ORDERED: fentaNYL/PF 50MCG/1 ML 2ML syringe ONE (12:39)
[2022-03-28 13:55] VITALS: BP 152/92
[2022-03-28 14:05] VITALS: BP 137/84
[2022-03-28 14:15] VITALS: BP 136/90
[2022-03-28 14:25] VITALS: BP 135/77
== END 2022-03-28 14:30 | disposition home or self-care (01) ==
LOC: GI LAB 12:12
PROVIDERS: ATTEND Specialist
DX: Z09 Encounter for follow-up examination after completed treatment for conditions other than malignant neoplasm (principal); D12.0 Benign neoplasm of cecum; D12.3 Benign neoplasm of transverse colon; K63.5 Polyp of colon; K57.30 Diverticulosis of large intestine without perforation or abscess without bleeding; J45.909 Unspecified asthma, uncomplicated; I25.2 Old myocardial infarction; E11.9 Type 2 diabetes mellitus without complications; Z95.1 Presence of aortocoronary bypass graft; Z79.82 Long term (current) use of aspirin; Z79.899 Other long term (current) drug therapy; Z79.84 Long term (current) use of oral hypoglycemic drugs
CPT/HCPCS: 45380; 45385; 99152; 99153; C1889; J2250; J3010; J7030; Z7512; A4620

== ENCOUNTER 2022-06-06 08:28 | Outpatient (CLI) | payer BC ==
[~2022-06-06 08:28] MED LIST changes: +LOSA25TA41 PO; -LOSA25TA96 PO
[2022-06-06 10:09] LABS: BASOPHILS % (AUTO) 0.6 % (0-1); EOSINOPHILS # (AUTO) 0.6 X10'3 (0-0.9); EOSINOPHILS % (AUTO) 7.5 % (0-6); HEMATOCRIT 38.5 % (42.0-52.0); HEMOGLOBIN 12.6 g/dl (14.0-17.9); LYMPHOCYTES # (AUTO) 2.2 X10'3 (1.1-4.8); MEAN CORPUSCULAR HEMOGLOBIN 31.3 PG (27.0-31.0); MEAN CORPUSCULAR HGB CONC 32.9 g/dL (33.0-36.5); MEAN CORPUSCULAR VOLUME 95.2 FL (78-98); MONOCYTES # (AUTO) 0.6 X10'3 (0-0.9); NEUTROPHILS # (AUTO) 4.7 X10'3 (1.8-7.7); NEUTROPHILS % (AUTO) 57.9 % (42-75); PLATELET COUNT 279 X10'3 (140-440); RED BLOOD COUNT 4.04 X10'6 (4.70-6.10); RED CELL DISTRIBUTION WIDTH 13.3 % (11.5-14.5); WHITE BLOOD COUNT 8.1 X10'3 (4.5-11.0)
[2022-06-06 10:31] LABS: ALANINE AMINOTRANSFERASE 42 U/L (12-78); ALBUMIN 3.9 G/DL (3.4-5.0); ALBUMIN/GLOBULIN RATIO 1.2 (1.1-1.5); ALKALINE PHOSPHATASE 64 IU/L (46-116); ANION GAP 9 (8-16); ASPARTATE AMINO TRANSFERASE 23 U/L (10-37); BILIRUBIN,TOTAL 0.3 MG/DL (0.1-1.0); BLOOD UREA NITROGEN 17 MG/DL (7-18); BUN/CREATININE RATIO 12.4 (10.0-20.0); CALCIUM 9.3 MG/DL (8.5-10.1); CHLORIDE 109 MMOL/L (99-107); CREATININE 1.37 MG/DL (0.60-1.10); GLUCOSE 152 MG/DL (70-104); POTASSIUM 3.8 MMOL/L (3.5-5.1); SODIUM 144 MMOL/L (135-145); TOTAL CARBON DIOXIDE 25.8 MMOL/L (24-32); TOTAL PROTEIN 7.2 G/DL (6.4-8.2); eGFR 52 ML/MIN
[2022-06-06 10:32] LABS: % IRON SATURATION 13 % (11-46); IRON 56 UG/DL (53-167); TOTAL IRON BINDING CAPACITY 447 UG/DL (259-388)
[2022-06-06 10:39] LABS: CHOL/HDL RATIO 1.9 (0.00-4.99); CHOLESTEROL 102 MG/DL (0-200); HDL CHOLESTEROL 54 MG/DL (35-60); LDL CHOLESTEROL 30 MG/DL (50-100); TRIGLYCERIDES 133 MG/DL (20-135)
[2022-06-07 08:12] LABS: % FREE PSA 12.5 % (.)
== END 2022-06-06 23:59 | disposition home or self-care (01) ==
LOC: LAB 08:28
PROVIDERS: ATTEND Family Medicine
DX: Z00.01 Encounter for general adult medical examination with abnormal findings (principal); Z12.5 Encounter for screening for malignant neoplasm of prostate; E29.1 Testicular hypofunction; I25.10 Atherosclerotic heart disease of native coronary artery without angina pectoris
CPT/HCPCS: 36415; 73000; 80053; 80061; 82306; 83540; 83550; 84153; 84154; 84402; 84403; 84439; 84443; 85025

== ENCOUNTER 2022-08-13 18:58 | Inpatient (IN) | payer BC ==
[~2022-08-13] VITALS: Ht 172.7 cm; Wt 82.4 kg
[2022-08-13 19:15] LABS: BASOPHILS % (AUTO) 0.5 % (0-1); EOSINOPHILS # (AUTO) 0.5 X10'3 (0-0.9); HEMATOCRIT 39.5 % (42.0-52.0); HEMOGLOBIN 12.9 g/dl (14.0-17.9); LYMPHOCYTES # (AUTO) 2.1 X10'3 (1.1-4.8); LYMPHOCYTES % (AUTO) 29.7 % (21-51); MEAN CORPUSCULAR HEMOGLOBIN 30.9 PG (27.0-31.0); MEAN CORPUSCULAR HGB CONC 32.6 g/dL (33.0-36.5); MEAN CORPUSCULAR VOLUME 94.9 FL (78-98); MEAN PLATELET VOLUME 8.2 FL (7.4-10.4); MONOCYTES # (AUTO) 0.6 X10'3 (0-0.9); MONOCYTES % (AUTO) 7.9 % (2-12); NEUTROPHILS # (AUTO) 3.9 X10'3 (1.8-7.7); NEUTROPHILS % (AUTO) 54.9 % (42-75); PLATELET COUNT 276 X10'3 (140-440); RED BLOOD COUNT 4.16 X10'6 (4.70-6.10); RED CELL DISTRIBUTION WIDTH 14.5 % (11.5-14.5); WHITE BLOOD COUNT 7.1 X10'3 (4.5-11.0)
[2022-08-13 19:30] LABS: ALANINE AMINOTRANSFERASE 33 U/L (12-78); ALBUMIN/GLOBULIN RATIO 1.3 (1.1-1.5); ALKALINE PHOSPHATASE 63 IU/L (46-116); ANION GAP 8 (8-16); ASPARTATE AMINO TRANSFERASE 19 U/L (10-37); BILIRUBIN,TOTAL 0.4 MG/DL (0.1-1.0); BLOOD UREA NITROGEN 17 MG/DL (7-18); BUN/CREATININE RATIO 13.7 (10.0-20.0); CALCIUM 9.6 MG/DL (8.5-10.1); CHLORIDE 106 MMOL/L (99-107); CREATININE 1.24 MG/DL (0.60-1.10); GLUCOSE 154 MG/DL (70-104); POTASSIUM 3.9 MMOL/L (3.5-5.1); SODIUM 138 MMOL/L (135-145); TOTAL CARBON DIOXIDE 23.7 MMOL/L (24-32); TOTAL PROTEIN 7.2 G/DL (6.4-8.2); eGFR 59 ML/MIN
[2022-08-13] MEDS ORDERED: aspirin 81mg tab.chew PO ONE (20:05)
[2022-08-13] MEDS ORDERED: heparin 10,000 units/1 ML INJ IV ONE ×3 (20:05→21:05)
--- NOTE | 2022-08-13 20:42 | NUR ---
NOTIFIED PHARMACY TO VERIFY HEPARIN
[2022-08-13] MEDS ORDERED: heparin 25,000 UNIT/250ml bag 250 ML IV PRN ×2 (20:44→21:05)
[2022-08-13] MEDS ORDERED: heparin 10,000 units/1 ML INJ IV PRN ×2 (20:46→21:05)
[2022-08-13 20:56] LABS: APTT 31 SECONDS (22-32)
[2022-08-13] MEDS ORDERED: dextrose 50%-water 50ml dispensing syringe IV PRN ×2 (21:05)
[2022-08-13] MEDS ORDERED: DEXTROSE 15 GM of carb/4 tabs (each vial/BOTTLE has 4 tablets) PO PRN ×2 (21:05)
[2022-08-13] MEDS ORDERED: glucagon, human recombinant 1mg kit SUBCUT PRN (21:05)
[2022-08-13] MEDS ORDERED: potassium Cl 40MEQ/1/2NS 520ml 520 ML IV PRN (21:05)
[2022-08-13] MEDS ORDERED: potassium Cl 20 mEq SR tablet PO PRN ×2 (21:05)
[2022-08-13] MEDS ORDERED: insulin Lispro (HumaLOG) vial - multi-dose SQ SCH (21:05)
[2022-08-13] MEDS ORDERED: mag hydrox/Alum hydrox/simeth 30ml oral suspension PO PRN (21:05)
[2022-08-13] MEDS ORDERED: ondansetron/PF 4mg/2ml inj IV PRN (21:05)
[2022-08-13] MEDS ORDERED: MESSAGE TO PHARMACY PO ONE (21:05)
[2022-08-13] MEDS ORDERED: acetaminophen 325mg tablet PO PRN (21:05)
[2022-08-13] MEDS ORDERED: magnesium 4gm in 100ml NS 100 ML IV PRN (21:05)
[2022-08-13] MEDS ORDERED: PERFLUTREN PROTEIN-A MICROSPHR (Optison) 0.22 MG/ML 3ML VIAL IV ONE (21:05)
[2022-08-13] MEDS ORDERED: metoprolol tartrate 1mg/ml inj IV PRN (21:10)
[2022-08-13] MEDS ORDERED: aminophylline 250mg/10ml inj. IV PRN (21:10)
[2022-08-13] MEDS ORDERED: regadenoson 0.4mg/5ml syringe IV PRN (21:10)
[2022-08-13] MEDS ORDERED: nitroGLYCERIN 0.4mg SUBLingual tab SL PRN (21:10)
--- NOTE | 2022-08-13 21:20 | NUR ---
SBAR TO RN ON FLOOR. DR. STEPHENS IN WITH PT CURRENTLY. THAN HE WILL BE TRANSFERRED TO THE FLOOR.
--- NOTE | 2022-08-13 21:36 | NUR ---
PAIN FREE HE SAID IT COMES AND GOES VERY QUICKLY CANNOT SAY IF IT IS THE NTG OR JUST HOW FAST IT COMES AND GOES
[2022-08-13 22:00] VITALS: BP 124/71
[2022-08-13] MEDS ORDERED: nitroGLYCERIN 0.4mg/hour patch TD SCH (23:10)
[2022-08-14] VITALS (11 sets, daily range): BP systolic 91–120; BP diastolic 52–79
[2022-08-14 03:20] LABS: BASOPHILS % (AUTO) 0.5 % (0-1); EOSINOPHILS # (AUTO) 0.5 X10'3 (0-0.9); EOSINOPHILS % (AUTO) 5.7 % (0-6); HEMATOCRIT 37.4 % (42.0-52.0); HEMOGLOBIN 12.3 g/dl (14.0-17.9); LYMPHOCYTES # (AUTO) 3.2 X10'3 (1.1-4.8); LYMPHOCYTES % (AUTO) 36.7 % (21-51); MEAN CORPUSCULAR HEMOGLOBIN 30.9 PG (27.0-31.0); MEAN CORPUSCULAR HGB CONC 32.7 g/dL (33.0-36.5); MEAN CORPUSCULAR VOLUME 94.4 FL (78-98); MEAN PLATELET VOLUME 8.5 FL (7.4-10.4); MONOCYTES # (AUTO) 0.7 X10'3 (0-0.9); MONOCYTES % (AUTO) 7.8 % (2-12); NEUTROPHILS # (AUTO) 4.2 X10'3 (1.8-7.7); NEUTROPHILS % (AUTO) 49.3 % (42-75); PLATELET COUNT 259 X10'3 (140-440); RED BLOOD COUNT 3.97 X10'6 (4.70-6.10); RED CELL DISTRIBUTION WIDTH 14.4 % (11.5-14.5); WHITE BLOOD COUNT 8.6 X10'3 (4.5-11.0)
[2022-08-14 03:32] LABS: ALANINE AMINOTRANSFERASE 30 U/L (12-78); ALBUMIN 3.4 G/DL (3.4-5.0); ALBUMIN/GLOBULIN RATIO 1.2 (1.1-1.5); ALKALINE PHOSPHATASE 58 IU/L (46-116); ANION GAP 11 (8-16); ASPARTATE AMINO TRANSFERASE 16 U/L (10-37); BILIRUBIN,TOTAL 0.6 MG/DL (0.1-1.0); BLOOD UREA NITROGEN 20 MG/DL (7-18); BUN/CREATININE RATIO 17.7 (10.0-20.0); CALCIUM 9.3 MG/DL (8.5-10.1); CHLORIDE 107 MMOL/L (99-107); CREATININE 1.13 MG/DL (0.60-1.10); GLUCOSE 118 MG/DL (70-104); POTASSIUM 3.6 MMOL/L (3.5-5.1); SODIUM 141 MMOL/L (135-145); TOTAL CARBON DIOXIDE 22.8 MMOL/L (24-32); TOTAL PROTEIN 6.3 G/DL (6.4-8.2); eGFR 66 ML/MIN
[2022-08-14] MEDS ORDERED: iohexol 350MG/ML 100ml bottle IV ONE ×3 (06:08→07:13)
[2022-08-14] MEDS ORDERED: nitroGLYCERIN-Tridil 50MG/D5W 250 ML IV ONE (06:08)
[2022-08-14] MEDS ORDERED: midazolam 1 mg/ML 2ml injection ONE (06:08)
[2022-08-14] MEDS ORDERED: heparin 1,000unit/ml 10ml vial 10 ML ONE (06:08)
[2022-08-14] MEDS ORDERED: verapamil 2.5 mg/ml inj IV ONE (06:08)
[2022-08-14] MEDS ORDERED: LIDOcaine 1% (10mg/ml) 2ml vial ONE (06:08)
[2022-08-14] MEDS ORDERED: iohexol 350 MG/ML 50ML vial IV ONE (06:08)
[2022-08-14] MEDS ORDERED: heparin 1,000 UNITS/NS 500ml 1,500 ML ONE (06:09)
--- NOTE | 2022-08-14 06:20 | NUR ---
Patient in room PCU 3020. 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 Addendum: 08/14/22 at 0644 by Monalisa Tate RN Amended: Links added.
--- NOTE | 2022-08-14 06:33 | NUR ---
Problems reprioritized. Patient report given, questions answered & plan of care reviewed with Monalisa BELTRAN.
[2022-08-14] MEDS ORDERED: diphenhydrAMINE 50 mg/ml inj ONE (06:52)
[2022-08-14] MEDS ORDERED: pantoprazole 40mg Tablet.DR PO SCH (07:30)
[2022-08-14] MEDS ORDERED: carVEDilol 3.125mg tablet PO SCH (08:00)
[2022-08-14] MEDS ORDERED: K and/or MAG REPLACEMENT MC SCH (08:00)
[2022-08-14] MEDS ORDERED: docusate sod 100mg capsule PO SCH (08:00)
--- NOTE | 2022-08-14 08:45 | NUR ---
Pt back to room, at bedside. Left radial band in place with 15ml air. Pt no distress. Call light in reach.
[2022-08-14] MEDS ORDERED: isosorbide mononitrate 30mg tab.SR.24H PO SCH (08:50)
[2022-08-14 08:54] LABS: CHOL/HDL RATIO 1.6 (0.00-4.99); CHOLESTEROL 87 MG/DL (0-200); HDL CHOLESTEROL 56 MG/DL (35-60); LDL CHOLESTEROL 29 MG/DL (50-100); TRIGLYCERIDES 104 MG/DL (20-135)
[2022-08-14] MEDS ORDERED: EVOL140P3 SUBCUT (09:03)
--- NOTE | 2022-08-14 09:28 | NUR ---
echo at bedside
[2022-08-14] MEDS ORDERED: CARV6.253 PO (15:10)
[2022-08-14] MEDS ORDERED: ISOS30TA84 PO (15:10)
[2022-08-14] MEDS ORDERED: CLOP-32 PO (15:10)
--- NOTE | 2022-08-14 16:32 | NUR ---
All written and verbal orders for D/C given, Activity post radial cath given. Pt stated he had all belongings, Home with family. Addendum: 08/14/22 at 1632 by Monalisa Tate RN Amended: Links added.
[2022-08-14] MEDS ORDERED: carvedilol 6.25mg tablet PO SCH (20:00)
[2022-08-14] MEDS ORDERED: insulin glargine (Lantus) pen - multi-dose SQ SCH (21:00)
[2022-08-15] MEDS ORDERED: aspirin 81mg, enteric-coated 1 TAB TABLET.DR PO SCH (08:00)
[2022-08-15] MEDS ORDERED: losartan 25mg tablet PO SCH (08:00)
[2022-08-15] MEDS ORDERED: pantoprazole 40mg Tablet.DR PO SCH (08:00)
[2022-08-15] MEDS ORDERED: duloxetine 30mg CAPSULE.DR PO SCH (08:00)
[2022-08-16] MEDS ORDERED: METFORMIN ER 500MG PO SCH (08:00)
== END 2022-08-14 16:14 | disposition home or self-care (01) | DRG 287 ==
LOC: EEVIPCON 18:58 → ER 18:58 → ED HOLD 21:10 → PCU 3S 22:00
PROVIDERS: ADMIT Family Medicine; ATTEND Family Medicine
PROC: 4A023N7 Measurement of Cardiac Sampling and Pressure, Left Heart, Percutaneous Approach (ICD-10-PCS; principal; 2022-08-14)
PROC: B2111ZZ Fluoroscopy of Multiple Coronary Arteries using Low Osmolar Contrast (ICD-10-PCS; 2022-08-14)
PROC: B2131ZZ Fluoroscopy of Multiple Coronary Artery Bypass Grafts using Low Osmolar Contrast (ICD-10-PCS; 2022-08-14)
PROC: B2151ZZ Fluoroscopy of Left Heart using Low Osmolar Contrast (ICD-10-PCS; 2022-08-14)
DX: I25.700 Atherosclerosis of coronary artery bypass graft(s), unspecified, with unstable angina pectoris (principal); I25.110 Atherosclerotic heart disease of native coronary artery with unstable angina pectoris; I50.22 Chronic systolic (congestive) heart failure; F32.A Depression, unspecified; E78.5 Hyperlipidemia, unspecified; E11.22 Type 2 diabetes mellitus with diabetic chronic kidney disease; N18.9 Chronic kidney disease, unspecified; J45.909 Unspecified asthma, uncomplicated; Z79.82 Long term (current) use of aspirin; Z79.84 Long term (current) use of oral hypoglycemic drugs; Z80.42 Family history of malignant neoplasm of prostate; Z82.49 Family history of ischemic heart disease and other diseases of the circulatory system; I25.2 Old myocardial infarction; Z83.3 Family history of diabetes mellitus; Z87.11 Personal history of peptic ulcer disease; Z87.442 Personal history of urinary calculi; Z88.5 Allergy status to narcotic agent; Z79.899 Other long term (current) drug therapy
CPT/HCPCS: 93306; 93459; 96365; 96376; 99285; C9607; 36415; 71045; 76937; 80053; 80061; 82948; 83735; 83880; 84484; 85025; 85347; 85610; 85730; 87081; 93005; 99152; 99153; A6258; C1725; C1751; C1769; C1894; G0378; J1200; J1644; J1815; J2250; J3490; J7030; Q9967

== ENCOUNTER 2022-10-02 12:16 | Outpatient (CLI) | payer BC ==
[~2022-10-02 12:16] MED LIST changes: -ACET-1 PO; -CARV3.122 PO; +CARV6.253 PO; +CLOP-32 PO; +EVOL140P3 SUBCUT; +ISOS30TA84 PO; -NITR0.4T51 SL
== END 2022-10-02 23:59 | disposition home or self-care (01) ==
LOC: RAD 12:16
PROVIDERS: ATTEND Family Medicine
DX: S99.912A Unspecified injury of left ankle, initial encounter (principal); S99.922A Unspecified injury of left foot, initial encounter; X58.XXXA Exposure to other specified factors, initial encounter; Y93.89 Activity, other specified; Y92.89 Other specified places as the place of occurrence of the external cause; Y99.8 Other external cause status
CPT/HCPCS: 73610; 73630

== ENCOUNTER → 2023-03-27 | Outpatient (CLI) | payer BC ==
[2023-03-27 09:43] LABS: BASOPHILS % (AUTO) 0.4 % (0-1); EOSINOPHILS # (AUTO) 0.5 X10'3 (0-0.9); EOSINOPHILS % (AUTO) 8.4 % (0-6); HEMATOCRIT 39.7 % (42.0-52.0); HEMOGLOBIN 13.2 g/dl (14.0-17.9); LYMPHOCYTES # (AUTO) 1.6 X10'3 (1.1-4.8); LYMPHOCYTES % (AUTO) 27.1 % (21-51); MEAN CORPUSCULAR HEMOGLOBIN 31.9 PG (27.0-31.0); MEAN CORPUSCULAR HGB CONC 33.4 g/dL (33.0-36.5); MEAN CORPUSCULAR VOLUME 95.5 FL (78-98); MEAN PLATELET VOLUME 8.2 FL (7.4-10.4); MONOCYTES # (AUTO) 0.4 X10'3 (0-0.9); MONOCYTES % (AUTO) 6.8 % (2-12); NEUTROPHILS # (AUTO) 3.4 X10'3 (1.8-7.7); NEUTROPHILS % (AUTO) 57.3 % (42-75); PLATELET COUNT 252 X10'3 (140-440); RED BLOOD COUNT 4.16 X10'6 (4.70-6.10); WHITE BLOOD COUNT 5.8 X10'3 (4.5-11.0)
[2023-03-27 10:18] LABS: ALANINE AMINOTRANSFERASE 36 U/L (12-78); ALBUMIN 3.9 G/DL (3.4-5.0); ALBUMIN/GLOBULIN RATIO 1.1 (1.1-1.5); ALKALINE PHOSPHATASE 75 IU/L (46-116); ANION GAP 11 (8-16); ASPARTATE AMINO TRANSFERASE 26 U/L (10-37); BILIRUBIN,TOTAL 0.9 MG/DL (0.1-1.0); BLOOD UREA NITROGEN 18 MG/DL (7-18); BUN/CREATININE RATIO 14.8 (10.0-20.0); CALCIUM 9.4 MG/DL (8.5-10.1); CHLORIDE 106 MMOL/L (99-107); CHOL/HDL RATIO 1.7 (0.00-4.99); CHOLESTEROL 124 MG/DL (0-200); CREATININE 1.22 MG/DL (0.60-1.10); FREE T4 (FREE THYROXINE) 0.95 NG/DL (0.73-1.40); GLUCOSE 147 MG/DL (70-104); HDL CHOLESTEROL 71 MG/DL (35-60); LDL CHOLESTEROL 35 MG/DL (50-100); POTASSIUM 4.1 MMOL/L (3.5-5.1); SODIUM 139 MMOL/L (135-145); THYROID STIMULATING HORMONE 1.61 ulU/ml (0.34-4.50); TOTAL CARBON DIOXIDE 22.4 MMOL/L (24-32); TOTAL PROTEIN 7.6 G/DL (6.4-8.2); TRIGLYCERIDES 124 MG/DL (20-135); eGFR 60 ML/MIN
== END | disposition home or self-care (01) ==
LOC: LAB 08:49
PROVIDERS: ATTEND Family Medicine
DX: Z00.01 Encounter for general adult medical examination with abnormal findings (principal)
CPT/HCPCS: 36415; 80053; 80061; 82306; 82607; 82746; 84153; 84402; 84403; 84439; 84443; 85025

== ENCOUNTER 2023-05-24 06:52 | Inpatient (IN) | payer BC ==
[~2023-05-24] VITALS: Ht 172.7 cm; Wt 77.3 kg
[2023-05-24 08:31] LABS: ALANINE AMINOTRANSFERASE 29 U/L (12-78); ALBUMIN 3.7 G/DL (3.4-5.0); ALBUMIN/GLOBULIN RATIO 0.9 (1.1-1.5); ALKALINE PHOSPHATASE 79 IU/L (46-116); ANION GAP 10 (8-16); ASPARTATE AMINO TRANSFERASE 15 U/L (10-37); BILIRUBIN,TOTAL 0.6 MG/DL (0.1-1.0); BLOOD UREA NITROGEN 17 MG/DL (7-18); BUN/CREATININE RATIO 13.9 (10.0-20.0); CALCIUM 9.4 MG/DL (8.5-10.1); CHLORIDE 109 MMOL/L (99-107); CREATININE 1.22 MG/DL (0.60-1.10); GLUCOSE 167 MG/DL (70-104); POTASSIUM 4.4 MMOL/L (3.5-5.1); SODIUM 142 MMOL/L (135-145); TOTAL CARBON DIOXIDE 22.7 MMOL/L (24-32); TOTAL PROTEIN 7.7 G/DL (6.4-8.2); eCRCL 59 ML/MIN; eGFR 60 ML/MIN
[2023-05-24 08:32] LABS: C-REACTIVE PROTEIN 2.76 MG/DL (0.0-0.5)
[2023-05-24 08:34] LABS: BASOPHILS % (AUTO) 0.3 % (0-1); EOSINOPHILS # (AUTO) 0.5 X10'3 (0-0.9); EOSINOPHILS % (AUTO) 4.7 % (0-6); HEMATOCRIT 41.4 % (42.0-52.0); HEMOGLOBIN 13.8 g/dl (14.0-17.9); LYMPHOCYTES # (AUTO) 1.4 X10'3 (1.1-4.8); LYMPHOCYTES % (AUTO) 14.6 % (21-51); MEAN CORPUSCULAR HEMOGLOBIN 31.7 PG (27.0-31.0); MEAN CORPUSCULAR HGB CONC 33.3 g/dL (33.0-36.5); MEAN CORPUSCULAR VOLUME 95.3 FL (78-98); MEAN PLATELET VOLUME 8.4 FL (7.4-10.4); MONOCYTES # (AUTO) 0.9 X10'3 (0-0.9); MONOCYTES % (AUTO) 9.3 % (2-12); NEUTROPHILS % (AUTO) 71.1 % (42-75); PLATELET COUNT 264 X10'3 (140-440); RED BLOOD COUNT 4.35 X10'6 (4.70-6.10); RED CELL DISTRIBUTION WIDTH 13.5 % (11.5-14.5); WHITE BLOOD COUNT 9.9 X10'3 (4.5-11.0)
[2023-05-24 09:01] LABS: URIC ACID 3.7 MG/DL (3.5-7.2)
[2023-05-24] MEDS ORDERED: furosemide 10 MG/1 ML 10ml inj IV ONE (11:25)
[2023-05-24] MEDS: furosemide 20 MG/2 ML vial IV ONE (11:25)
[2023-05-24] MEDS ORDERED: potassium Cl 40MEQ/1/2NS 520ml 520 ML IV PRN (12:05)
[2023-05-24] MEDS ORDERED: acetaminophen 325mg tablet PO PRN (12:05)
[2023-05-24] MEDS ORDERED: magnesium 2GM in 50ml NS 50 ML IV PRN (12:05)
[2023-05-24] MEDS ORDERED: potassium Cl 20 mEq SR tablet PO PRN ×2 (12:05)
[2023-05-24] MEDS ORDERED: magnesium Cl slow-release 64mg tablet PO PRN (12:05)
[2023-05-24] MEDS ORDERED: ondansetron/PF 4mg/2ml inj IV PRN ×2 (12:05→19:40)
[2023-05-24] MEDS ORDERED: magnesium 4gm in 100ml NS 100 ML IV PRN (12:05)
[2023-05-24] MEDS ORDERED: DEXTROSE 15 GM of carb/4 tabs (each vial/BOTTLE has 4 tablets) PO PRN ×2 (12:10)
[2023-05-24] MEDS ORDERED: glucagon, human recombinant 1mg kit SUBCUT PRN (12:10)
[2023-05-24] MEDS ORDERED: dextrose 50%-water 50ml dispensing syringe IV PRN ×2 (12:10)
[2023-05-24] MEDS ORDERED: insulin Lispro (HumaLOG) vial - multi-dose SQ SCH (12:10)
[2023-05-24 12:22] LABS: ALBUMIN 3.9 G/DL (3.4-5.0); ANION GAP 13 (8-16); BLOOD UREA NITROGEN 16 MG/DL (7-18); BUN/CREATININE RATIO 14.3 (10.0-20.0); CALCIUM 9.6 MG/DL (8.5-10.1); CHLORIDE 107 MMOL/L (99-107); CREATININE 1.12 MG/DL (0.60-1.10); GLUCOSE 126 MG/DL (70-104); MAGNESIUM 2.2 MG/DL (1.5-2.4); POTASSIUM 4.1 MMOL/L (3.5-5.1); SODIUM 142 MMOL/L (135-145); eCRCL 64 ML/MIN; eGFR 66 ML/MIN
[2023-05-24] MEDS ORDERED: CARV6.253 PO (12:27)
[2023-05-24] MEDS ORDERED: TICA90TA2 PO (12:27)
[2023-05-24] MEDS ORDERED: EMPA10TA PO (12:27)
[2023-05-24] MEDS: normal saline 1000ml 1,000 ML IV SCH (12:30)
[2023-05-24] MEDS: MESSAGE TO PHARMACY PO ONE (13:08)
[2023-05-24 13:51] LABS: HEMOGLOBIN A1C 6.1 % (4.5-6.2)
[2023-05-24] MEDS: acetaminophen w/codeine (30MG) #3 tablet PO PRN (14:13)
[2023-05-24] MEDS ORDERED: GADOTERATE MEGLUMINE 7.5 MMOL/15 ML VIAL IV ONE (14:26)
[2023-05-24] MEDS ORDERED: ampicillin/sulbac 3gm/NS 100ml 100 ML IV SCH (15:00)
[2023-05-24] MEDS: vancomycin/NS 1 GM ADD-VANTAGE 250 ML IV SCH (15:23)
[2023-05-24] MEDS: ampicillin/sulbac 3gm/NS 100ml 100 ML IV SCH (17:44)
[2023-05-24] MEDS: enoxaparin 40mg/0.4ml syringe SQ SCH (19:58)
[2023-05-24] MEDS: acetaminophen 325mg tablet PO PRN (20:31)
[2023-05-24] MEDS: insulin glargine (Lantus) pen - multi-dose SQ SCH (21:00)
[2023-05-24] MEDS: ticagrelor 90mg tablet PO SCH (21:41)
[2023-05-24] MEDS: carvedilol 6.25mg tablet PO SCH (21:41)
[2023-05-24 21:45] VITALS: BP 123/71; PULSE 66; RESP 16; TEMP 98.6; O2SAT 99
[2023-05-25 06:47] LABS: BASOPHILS % (AUTO) 0.5 % (0-1); EOSINOPHILS # (AUTO) 0.6 X10'3 (0-0.9); EOSINOPHILS % (AUTO) 6.3 % (0-6); HEMATOCRIT 36.8 % (42.0-52.0); HEMOGLOBIN 12.5 g/dl (14.0-17.9); LYMPHOCYTES # (AUTO) 1.9 X10'3 (1.1-4.8); LYMPHOCYTES % (AUTO) 22.1 % (21-51); MEAN CORPUSCULAR HEMOGLOBIN 32.4 PG (27.0-31.0); MEAN CORPUSCULAR VOLUME 95.4 FL (78-98); MEAN PLATELET VOLUME 8.6 FL (7.4-10.4); MONOCYTES # (AUTO) 0.7 X10'3 (0-0.9); MONOCYTES % (AUTO) 8.5 % (2-12); NEUTROPHILS # (AUTO) 5.5 X10'3 (1.8-7.7); NEUTROPHILS % (AUTO) 62.6 % (42-75); PLATELET COUNT 237 X10'3 (140-440); RED BLOOD COUNT 3.86 X10'6 (4.70-6.10); RED CELL DISTRIBUTION WIDTH 13.2 % (11.5-14.5); WHITE BLOOD COUNT 8.8 X10'3 (4.5-11.0)
[2023-05-25 07:03] LABS: ALANINE AMINOTRANSFERASE 21 U/L (12-78); ALBUMIN/GLOBULIN RATIO 0.9 (1.1-1.5); ALKALINE PHOSPHATASE 72 IU/L (46-116); ANION GAP 11 (8-16); ASPARTATE AMINO TRANSFERASE 7 U/L (10-37); BILIRUBIN,TOTAL 0.9 MG/DL (0.1-1.0); BLOOD UREA NITROGEN 13 MG/DL (7-18); BUN/CREATININE RATIO 12.9 (10.0-20.0); CALCIUM 8.3 MG/DL (8.5-10.1); CHLORIDE 110 MMOL/L (99-107); CREATININE 1.01 MG/DL (0.60-1.10); GLUCOSE 139 MG/DL (70-104); POTASSIUM 3.8 MMOL/L (3.5-5.1); SODIUM 141 MMOL/L (135-145); TOTAL CARBON DIOXIDE 20.2 MMOL/L (24-32); TOTAL PROTEIN 6.5 G/DL (6.4-8.2); eCRCL 71 ML/MIN; eGFR 74 ML/MIN
[2023-05-25] MEDS: aspirin 81mg, enteric-coated 1 TAB TABLET.DR PO SCH (08:10)
[2023-05-25] MEDS: EMPAGLIFLOZIN 10 MG TABLET PO SCH (08:11)
[2023-05-25] MEDS: duloxetine 30mg CAPSULE.DR PO SCH (08:11)
[2023-05-25] MEDS: losartan 25mg tablet PO SCH (08:12)
[2023-05-25 11:30] VITALS: BP 119/74; PULSE 65; RESP 15; TEMP 97.5; O2SAT 95
[2023-05-25 18:00] VITALS: BP 119/74; PULSE 62; RESP 14; TEMP 97.5; O2SAT 97
[2023-05-25 22:00] VITALS: BP 120/75; PULSE 62; RESP 18; TEMP 97.2; O2SAT 99
[2023-05-26] MEDS: VANCOMYCIN LEVEL IJ ONE (01:56)
[2023-05-26 02:03] LABS: HEMATOCRIT 33.4 % (42.0-52.0); RED BLOOD COUNT 3.49 X10'6 (4.70-6.10)
[2023-05-26 02:06] LABS: BASOPHILS % (AUTO) 0.4 % (0-1); EOSINOPHILS # (AUTO) 0.4 X10'3 (0-0.9); EOSINOPHILS % (AUTO) 6.4 % (0-6); HEMOGLOBIN 11.2 g/dl (14.0-17.9); LYMPHOCYTES # (AUTO) 2.1 X10'3 (1.1-4.8); LYMPHOCYTES % (AUTO) 30.2 % (21-51); MEAN CORPUSCULAR HEMOGLOBIN 32.1 PG (27.0-31.0); MEAN CORPUSCULAR HGB CONC 33.5 g/dL (33.0-36.5); MEAN CORPUSCULAR VOLUME 95.6 FL (78-98); MEAN PLATELET VOLUME 8.2 FL (7.4-10.4); MONOCYTES # (AUTO) 0.6 X10'3 (0-0.9); MONOCYTES % (AUTO) 8.6 % (2-12); NEUTROPHILS # (AUTO) 3.8 X10'3 (1.8-7.7); NEUTROPHILS % (AUTO) 54.4 % (42-75); PLATELET COUNT 212 X10'3 (140-440); RED CELL DISTRIBUTION WIDTH 13.2 % (11.5-14.5)
[2023-05-26 02:22] LABS: GLUCOSE 116 MG/DL (70-104); POTASSIUM 3.6 MMOL/L (3.5-5.1); SODIUM 143 MMOL/L (135-145)
[2023-05-26 02:23] LABS: ALANINE AMINOTRANSFERASE 38 U/L (12-78); ALBUMIN 2.5 G/DL (3.4-5.0); ALBUMIN/GLOBULIN RATIO 0.8 (1.1-1.5); ALKALINE PHOSPHATASE 65 IU/L (46-116); ANION GAP 11 (8-16); ASPARTATE AMINO TRANSFERASE 36 U/L (10-37); BILIRUBIN,TOTAL 0.4 MG/DL (0.1-1.0); BLOOD UREA NITROGEN 15 MG/DL (7-18); BUN/CREATININE RATIO 14.3 (10.0-20.0); CALCIUM 7.5 MG/DL (8.5-10.1); CHLORIDE 112 MMOL/L (99-107); CREATININE 1.05 MG/DL (0.60-1.10); TOTAL PROTEIN 5.7 G/DL (6.4-8.2); VANCOMYCIN,TROUGH 13.6 ug/mL (10.0-20.0); eCRCL 69 ML/MIN; eGFR 71 ML/MIN
[2023-05-26] MEDS ORDERED: AMOX-580 PO (09:45)
[2023-05-26 11:00] VITALS: BP 122/77; PULSE 60; RESP 16; TEMP 97.7; O2SAT 97
[2023-05-26] MEDS ORDERED: VANCOmycin 1250MG/NS 250ml Bag 250 ML IV SCH (14:00)
[2023-05-28] MEDS ORDERED: VANCOMYCIN LEVEL IV ONE (01:30)
== END 2023-05-26 12:05 | disposition home or self-care (01) | DRG 558 ==
LOC: ER 06:52 → EEVIPCON 06:52 → ED HOLD 12:09 → EDBEDREQ 12:52 → ORTHO 4S 14:05
PROVIDERS: ADMIT Internal Medicine; ATTEND Internal Medicine
DX: M65.841 Other synovitis and tenosynovitis, right hand (principal); N17.9 Acute kidney failure, unspecified; E11.22 Type 2 diabetes mellitus with diabetic chronic kidney disease; I12.9 Hypertensive chronic kidney disease with stage 1 through stage 4 chronic kidney disease, or unspecified chronic kidney disease; I25.10 Atherosclerotic heart disease of native coronary artery without angina pectoris; I25.2 Old myocardial infarction; J45.909 Unspecified asthma, uncomplicated; N18.30 Chronic kidney disease, stage 3 unspecified; Z79.84 Long term (current) use of oral hypoglycemic drugs; Z80.42 Family history of malignant neoplasm of prostate; Z82.49 Family history of ischemic heart disease and other diseases of the circulatory system; Z83.3 Family history of diabetes mellitus; Z95.1 Presence of aortocoronary bypass graft; Z88.5 Allergy status to narcotic agent; Z85.46 Personal history of malignant neoplasm of prostate; Z79.899 Other long term (current) drug therapy; Z79.82 Long term (current) use of aspirin
CPT/HCPCS: 36415; 71045; 73110; 73223; 80048; 80053; 80202; 82948; 83036; 83605; 83735; 84145; 84550; 85025; 85651; 86140; 87040; 87081; 93005; 99285; A9575; G0378; J0295; J1815; J3370; J7030; J7040

== ENCOUNTER 2023-10-08 02:25 | Inpatient (IN) | payer BC ==
[2023-10-08] VITALS (12 sets, daily range): BP systolic 110–132; BP diastolic 59–73; PULSE 57–81; RESP 12–18; TEMP 97.4–98.1; O2SAT 96–100
[~2023-10-08] VITALS: Ht 172.7 cm; Wt 80.0 kg
[~2023-10-08 02:25] MED LIST changes: +AMOX-580 PO; -CLOP-32 PO; +EMPA10TA PO; -ISOS30TA84 PO; -PANT40TA54 PO; +TICA90TA2 PO
[2023-10-08] MEDS ORDERED: nitroGLYCERIN 0.4mg SUBLingual tab SL PRN ×2 (02:35→07:10)
[2023-10-08] MEDS: ondansetron 4mg rapidly disintigrating tab PO ONE (02:40)
[2023-10-08] MEDS: aspirin 325mg tablet PO ONE (02:40)
[2023-10-08 02:48] LABS: BASOPHILS % (AUTO) 0.5 % (0-1); EOSINOPHILS # (AUTO) 0.7 X10'3 (0-0.9); EOSINOPHILS % (AUTO) 7.6 % (0-6); HEMATOCRIT 38.6 % (42.0-52.0); HEMOGLOBIN 12.5 g/dl (14.0-17.9); LYMPHOCYTES # (AUTO) 2.9 X10'3 (1.1-4.8); LYMPHOCYTES % (AUTO) 33.3 % (21-51); MEAN CORPUSCULAR HEMOGLOBIN 30.6 PG (27.0-31.0); MEAN CORPUSCULAR HGB CONC 32.4 g/dL (33.0-36.5); MEAN CORPUSCULAR VOLUME 94.4 FL (78-98); MEAN PLATELET VOLUME 8.1 FL (7.4-10.4); MONOCYTES # (AUTO) 0.8 X10'3 (0-0.9); MONOCYTES % (AUTO) 8.7 % (2-12); NEUTROPHILS # (AUTO) 4.4 X10'3 (1.8-7.7); NEUTROPHILS % (AUTO) 49.9 % (42-75); PLATELET COUNT 249 X10'3 (140-440); RED BLOOD COUNT 4.09 X10'6 (4.70-6.10); RED CELL DISTRIBUTION WIDTH 13.9 % (11.5-14.5); WHITE BLOOD COUNT 8.8 X10'3 (4.5-11.0)
[2023-10-08 03:09] LABS: ALBUMIN 3.6 G/DL (3.4-5.0); ANION GAP 11 (8-16); BLOOD UREA NITROGEN 14 MG/DL (7-18); BUN/CREATININE RATIO 12.1 (10.0-20.0); CALCIUM 9.1 MG/DL (8.5-10.1); CHLORIDE 106 MMOL/L (99-107); CREATININE 1.16 MG/DL (0.60-1.10); GLUCOSE 111 MG/DL (70-104); POTASSIUM 3.9 MMOL/L (3.5-5.1); PRO BRAIN NATRIURETIC PEPTIDE 166 PG/ML (0-125); SODIUM 138 MMOL/L (135-145); TOTAL CARBON DIOXIDE 21.5 MMOL/L (24-32); eCRCL 62 ML/MIN; eGFR 63 ML/MIN
[2023-10-08] MEDS ORDERED: ondansetron/PF 4mg/2ml inj IV PRN (04:00)
[2023-10-08] MEDS ORDERED: magnesium hydroxide 30ml (MOM) UD suspension PO PRN (04:00)
[2023-10-08] MEDS ORDERED: magnesium Cl slow-release 64mg tablet PO PRN (04:00)
[2023-10-08] MEDS ORDERED: acetaminophen 325mg tablet PO PRN (04:00)
[2023-10-08] MEDS ORDERED: potassium Cl 40MEQ/1/2NS 520ml 520 ML IV PRN (04:00)
[2023-10-08] MEDS ORDERED: magnesium sulf-water 2g/50mL 50 ML IV PRN (04:00)
[2023-10-08] MEDS ORDERED: potassium Cl 20 mEq SR tablet PO PRN ×2 (04:00)
[2023-10-08] MEDS ORDERED: mag hydrox/Alum hydrox/simeth 30ml oral suspension PO PRN (04:00)
[2023-10-08] MEDS ORDERED: magnesium sulf-water 4G/100mL 100 ML IV PRN (04:00)
[2023-10-08] MEDS: normal saline 1000ml 1,000 ML IV SCH (04:41)
[2023-10-08 06:06] LABS: MAGNESIUM 1.9 MG/DL (1.5-2.4); POTASSIUM 4.1 MMOL/L (3.5-5.1)
[2023-10-08] MEDS ORDERED: CARV3.1244 PO ×2 (07:08→15:51)
[2023-10-08] MEDS ORDERED: metoprolol tartrate 1mg/ml inj IV PRN (07:10)
[2023-10-08] MEDS ORDERED: aminophylline 250mg/10ml inj. IV PRN (07:10)
[2023-10-08] MEDS: K and/or MAG REPLACEMENT MC SCH (08:00)
[2023-10-08] MEDS: EMPAGLIFLOZIN 10 MG PO SCH (08:00)
[2023-10-08] MEDS: regadenoson 0.4mg/5ml syringe IV PRN (09:26)
[2023-10-08] MEDS: duloxetine 30mg CAPSULE.DR PO SCH (10:50)
[2023-10-08] MEDS: aspirin 81mg, enteric-coated 1 TAB TABLET.DR PO SCH (10:51)
[2023-10-08] MEDS: losartan 25mg tablet PO SCH (10:51)
[2023-10-08] MEDS: carVEDilol 3.125mg tablet PO SCH (10:51)
[2023-10-08] MEDS ORDERED: EMPAGLIFLOZIN 10 MG TABLET PO SCH (14:08)
[2023-10-08] MEDS ORDERED: TICA90TA PO (15:51)
== END 2023-10-08 16:30 | disposition home or self-care (01) | DRG 302 ==
LOC: EEVIPCON 02:26 → ER 02:26 → ED HOLD 04:00 → PCU 3S 08:27
PROVIDERS: ADMIT Internal Medicine Critical Care Medicine; ATTEND Family Medicine
PROC: 4A02XM4 Measurement of Cardiac Total Activity, External Approach (ICD-10-PCS; principal; 2023-10-08)
PROC: 3E033HZ Introduction of Radioactive Substance into Peripheral Vein, Percutaneous Approach (ICD-10-PCS; 2023-10-08)
DX: I25.110 Atherosclerotic heart disease of native coronary artery with unstable angina pectoris (principal); N17.0 Acute kidney failure with tubular necrosis; I10 Essential (primary) hypertension; E78.5 Hyperlipidemia, unspecified; I25.10 Atherosclerotic heart disease of native coronary artery without angina pectoris; E11.9 Type 2 diabetes mellitus without complications; J45.909 Unspecified asthma, uncomplicated; Z95.1 Presence of aortocoronary bypass graft; Z88.5 Allergy status to narcotic agent; Z79.899 Other long term (current) drug therapy; Z79.84 Long term (current) use of oral hypoglycemic drugs; I25.2 Old myocardial infarction; Z83.3 Family history of diabetes mellitus
CPT/HCPCS: 36415; 71045; 78452; 80048; 83735; 83880; 84132; 84484; 85025; 93005; 93017; 93306; 99285; A9500; G0378; J2785; J7030

== ENCOUNTER 2023-10-23 12:31 | Day surgery (SDC) | payer BC ==
[~2023-10-23] VITALS: Ht 172.7 cm; Wt 81.8 kg
[~2023-10-23 12:31] MED LIST changes: -AMOX-580 PO; +CARV3.1244 PO; -CARV6.253 PO; +TICA90TA PO; -TICA90TA2 PO
[2023-10-23] MEDS ORDERED: CARV3.122 PO (13:07)
[2023-10-23 13:08] VITALS: BP 131/81; PULSE 66; RESP 15
[2023-10-23] MEDS ORDERED: propofol inj 60 ML IV ONE (13:30)
[2023-10-23 14:15] VITALS: BP 125/60; PULSE 63; RESP 16; O2SAT 99
[2023-10-23 14:25] VITALS: BP 130/62; PULSE 57; RESP 14; O2SAT 98
[2023-10-23 14:35] VITALS: BP 115/58; PULSE 50; RESP 18; O2SAT 96
[2023-10-23 14:45] VITALS: BP 127/64; PULSE 62; RESP 16; O2SAT 97
== END 2023-10-23 14:55 | disposition home or self-care (01) ==
LOC: GI LAB 12:31
PROVIDERS: ATTEND Internal Medicine Gastroenterology
DX: Z12.11 Encounter for screening for malignant neoplasm of colon (principal); K57.30 Diverticulosis of large intestine without perforation or abscess without bleeding; D12.3 Benign neoplasm of transverse colon; D12.2 Benign neoplasm of ascending colon; Z86.010 Personal history of colon polyps
CPT/HCPCS: 45385; J2704; J7030; Z7512; A4620; C1889

== ENCOUNTER 2024-04-03 01:33 | Inpatient (IN) | payer BC, OTHER ==
[~2024-04-03] VITALS: Ht 172.7 cm; Wt 82.3 kg
[2024-04-03] VITALS (15 sets, daily range): BP systolic 99–160; BP diastolic 57–80; PULSE 55–73; RESP 11–18; TEMP 97.6; O2SAT 93–99
[~2024-04-03 01:33] MED LIST changes: +CARV3.122 PO; -CARV3.1244 PO; -EVOL140P3 SUBCUT; -TICA90TA PO
[2024-04-03] MEDS: aspirin 81mg tab.chew PO STA (02:12)
[2024-04-03 02:19] LABS: BASOPHILS # (AUTO) 0.1 X10'3 (0-0.2); BASOPHILS % (AUTO) 0.7 % (0-1); EOSINOPHILS # (AUTO) 0.6 X10'3 (0-0.9); HEMATOCRIT 42.2 % (42.0-52.0); HEMOGLOBIN 13.5 g/dl (14.0-17.9); LYMPHOCYTES # (AUTO) 2.9 X10'3 (1.1-4.8); LYMPHOCYTES % (AUTO) 33.3 % (21-51); MEAN CORPUSCULAR HEMOGLOBIN 30.2 PG (27.0-31.0); MEAN CORPUSCULAR HGB CONC 32.1 g/dL (33.0-36.5); MEAN CORPUSCULAR VOLUME 94.2 FL (78-98); MEAN PLATELET VOLUME 8.6 FL (7.4-10.4); MONOCYTES # (AUTO) 0.7 X10'3 (0-0.9); NEUTROPHILS # (AUTO) 4.5 X10'3 (1.8-7.7); PLATELET COUNT 297 X10'3 (140-440); RED BLOOD COUNT 4.48 X10'6 (4.70-6.10); RED CELL DISTRIBUTION WIDTH 14.7 % (11.5-14.5); WHITE BLOOD COUNT 8.8 X10'3 (4.5-11.0)
[2024-04-03 03:21] LABS: ALBUMIN 3.5 G/DL (3.4-5.0); ANION GAP 7 (8-16); BLOOD UREA NITROGEN 16 MG/DL (7-18); BUN/CREATININE RATIO 14.4 (10.0-20.0); CALCIUM 8.9 MG/DL (8.5-10.1); CHLORIDE 107 MMOL/L (99-107); CREATININE 1.11 MG/DL (0.60-1.10); GLUCOSE 108 MG/DL (70-104); MAGNESIUM 1.9 MG/DL (1.5-2.4); POTASSIUM 3.9 MMOL/L (3.5-5.1); PRO BRAIN NATRIURETIC PEPTIDE 74 PG/ML (0-125); SODIUM 137 MMOL/L (135-145); TOTAL CARBON DIOXIDE 23.4 MMOL/L (24-32); eCRCL 65 ML/MIN; eGFR 67 ML/MIN
[2024-04-03] MEDS ORDERED: LOSA-415 PO (04:02)
[2024-04-03] MEDS ORDERED: potassium Cl 40MEQ/1/2NS 520ml 520 ML IV PRN (04:55)
[2024-04-03] MEDS ORDERED: ondansetron/PF 4mg/2ml inj IV PRN (04:55)
[2024-04-03] MEDS ORDERED: magnesium sulf-water 2g/50mL 50 ML IV PRN (04:55)
[2024-04-03] MEDS ORDERED: magnesium Cl slow-release 64mg tablet PO PRN (04:55)
[2024-04-03] MEDS ORDERED: mag hydrox/Alum hydrox/simeth 30ml oral suspension PO PRN (04:55)
[2024-04-03] MEDS ORDERED: HYDROcodone/acetaminophen 5mg/325mg tablet PO PRN (04:55)
[2024-04-03] MEDS ORDERED: potassium Cl 20 mEq SR tablet PO PRN ×2 (04:55)
[2024-04-03] MEDS ORDERED: magnesium hydroxide 30ml (MOM) UD suspension PO PRN (04:55)
[2024-04-03] MEDS ORDERED: magnesium sulf-water 4G/100mL 100 ML IV PRN (04:55)
[2024-04-03] MEDS ORDERED: nitroGLYCERIN 0.4mg SUBLingual tab SL PRN (05:10)
[2024-04-03] MEDS: nitroGLYCERIN 0.4mg SUBLingual tab SL ONE (05:12)
[2024-04-03] MEDS ORDERED: heparin 10,000 units/1 ML INJ IV PRN (05:15)
[2024-04-03] MEDS: heparin 10,000 units/1 ML INJ IV ONE ×2 (05:20→05:58)
[2024-04-03] MEDS ORDERED: glucagon, human recombinant 1mg kit SUBCUT PRN (05:25)
[2024-04-03] MEDS ORDERED: DEXTROSE 15 GM of carb/4 tabs (each vial/BOTTLE has 4 tablets) PO PRN ×2 (05:25)
[2024-04-03] MEDS ORDERED: dextrose 50%-water 50ml dispensing syringe IV PRN ×2 (05:25)
[2024-04-03] MEDS: heparin 25,000 UNIT/250ml bag 250 ML IV PRN (05:59)
[2024-04-03] MEDS: morphine 2 MG/ML inj. syringe IV PRN (06:03)
[2024-04-03] MEDS: nitroGLYCERIN-Tridil 50MG/D5W 250 ML IV PRN (06:26)
[2024-04-03 06:28] LABS: APTT 29 SECONDS (22-32); INR 1.1 INR
[2024-04-03 07:06] LABS: POTASSIUM 3.9 MMOL/L (3.5-5.1)
[2024-04-03] MEDS ORDERED: LIDOcaine 1% 30ml preserv. free vial ONE (07:17)
[2024-04-03] MEDS ORDERED: midazolam 1 mg/ML 2ml injection ONE (07:17)
[2024-04-03] MEDS ORDERED: fentaNYL/PF 50MCG/1 ML 2ML syringe ONE (07:17)
[2024-04-03] MEDS ORDERED: heparin 1,000unit/ml 10ml vial 10 ML ONE (07:18)
[2024-04-03] MEDS ORDERED: iohexol 350MG/ML 100ml bottle IV ONE ×3 (07:18→09:35)
[2024-04-03] MEDS ORDERED: iohexol 350 MG/ML 50ML vial IV ONE (07:18)
[2024-04-03] MEDS ORDERED: nitroGLYCERIN 500mcg/5mL D5W 5 ML IV ONE (07:23)
[2024-04-03 07:29] LABS: HEMOGLOBIN A1C 5.8 % (4.5-6.2)
[2024-04-03] MEDS ORDERED: heparin 1,000 UNITS/NS 500ml 500 ML ONE (08:50)
[2024-04-03] MEDS ORDERED: atropine 0.1mg/ml 10ml syringe ONE (09:22)
[2024-04-03] MEDS ORDERED: aspirin 81mg tab.chew ONE (10:06)
[2024-04-03] MEDS ORDERED: ticagrelor 90mg tablet ONE (10:06)
[2024-04-03] MEDS: EMPAGLIFLOZIN 10 MG TABLET PO SCH (10:28)
[2024-04-03] MEDS: aspirin 81mg, enteric-coated 1 TAB TABLET.DR PO SCH (10:29)
[2024-04-03] MEDS: INSULIN LISPRO 100 UNIT/ML INSULN.PEN MULTI-DOSE SQ SCH (10:29)
[2024-04-03] MEDS: docusate sod 100mg capsule PO SCH (10:29)
[2024-04-03] MEDS: carVEDilol 3.125mg tablet PO SCH (10:29)
[2024-04-03] MEDS: duloxetine 30mg CAPSULE.DR PO SCH (10:29)
[2024-04-03] MEDS: K and/or MAG REPLACEMENT MC SCH (10:31)
[2024-04-03] MEDS ORDERED: morphine 2 MG/ML inj. syringe IV PRN (10:55)
[2024-04-03] MEDS ORDERED: cyclobenzaprine 10mg tablet PO PRN (11:05)
[2024-04-03] MEDS ORDERED: OXAZEpam 15mg capsule PO PRN (11:05)
[2024-04-03] MEDS ORDERED: HYDROcodone/acetaminophen 10/325mg tab PO PRN ×2 (11:05)
[2024-04-03] MEDS: normal saline 1000ml 1,000 ML IV ONE (11:21)
[2024-04-03] MEDS ORDERED: heparin 25,000 UNIT/250ml bag 250 ML IV PRN (17:01)
[2024-04-03] MEDS: acetaminophen 325mg tablet PO PRN (19:35)
[2024-04-03] MEDS: losartan 25mg tablet PO SCH (20:26)
[2024-04-03] MEDS: Melatonin 3mg tablet PO PRN (22:39)
[2024-04-04] VITALS (21 sets, daily range): BP systolic 95–153; BP diastolic 54–77; PULSE 56–81; RESP 11–21; TEMP 97.9–98.6; O2SAT 89–99
[2024-04-04 02:25] LABS: BASOPHILS % (AUTO) 0.3 % (0-1); EOSINOPHILS # (AUTO) 0.4 X10'3 (0-0.9); HEMATOCRIT 38.5 % (42.0-52.0); HEMOGLOBIN 12.6 g/dl (14.0-17.9); LYMPHOCYTES # (AUTO) 2.5 X10'3 (1.1-4.8); LYMPHOCYTES % (AUTO) 29.9 % (21-51); MEAN CORPUSCULAR HEMOGLOBIN 30.5 PG (27.0-31.0); MEAN CORPUSCULAR HGB CONC 32.7 g/dL (33.0-36.5); MEAN CORPUSCULAR VOLUME 93.2 FL (78-98); MEAN PLATELET VOLUME 8.5 FL (7.4-10.4); MONOCYTES # (AUTO) 0.7 X10'3 (0-0.9); NEUTROPHILS # (AUTO) 4.8 X10'3 (1.8-7.7); NEUTROPHILS % (AUTO) 56.8 % (42-75); PLATELET COUNT 263 X10'3 (140-440); RED BLOOD COUNT 4.13 X10'6 (4.70-6.10); RED CELL DISTRIBUTION WIDTH 14.7 % (11.5-14.5); WHITE BLOOD COUNT 8.5 X10'3 (4.5-11.0)
[2024-04-04 02:36] LABS: ALBUMIN 3.3 G/DL (3.4-5.0); ANION GAP 9 (8-16); BLOOD UREA NITROGEN 12 MG/DL (7-18); BUN/CREATININE RATIO 13.8 (10.0-20.0); CALCIUM 8.6 MG/DL (8.5-10.1); CHLORIDE 110 MMOL/L (99-107); CREATININE 0.87 MG/DL (0.60-1.10); GLUCOSE 114 MG/DL (70-104); POTASSIUM 3.7 MMOL/L (3.5-5.1); SODIUM 140 MMOL/L (135-145); TOTAL CARBON DIOXIDE 21.3 MMOL/L (24-32); eCRCL 83 ML/MIN; eGFR 88 ML/MIN
[2024-04-04] MEDS ORDERED: heparin 25,000 UNIT/250ml bag 250 ML IV PRN (02:55)
[2024-04-04 07:26] LABS: MAGNESIUM 1.9 MG/DL (1.5-2.4)
[2024-04-04] MEDS: isosorbide mononitrate 30mg tab.SR.24H PO SCH (07:26)
[2024-04-04] MEDS: aspirin 81mg, enteric-coated 1 TAB TABLET.DR PO SCH (07:26)
[2024-04-04] MEDS: ticagrelor 90mg tablet PO SCH (07:27)
[2024-04-04] MEDS ORDERED: LIDOcaine 1% 30ml preserv. free vial ONE (08:36)
[2024-04-05 02:00] VITALS: BP 106/62; PULSE 60; RESP 20; TEMP 98; O2SAT 98
[2024-04-05 07:15] LABS: BASOPHILS % (AUTO) 0.2 % (0-1); EOSINOPHILS # (AUTO) 0.4 X10'3 (0-0.9); EOSINOPHILS % (AUTO) 5.3 % (0-6); HEMATOCRIT 38.8 % (42.0-52.0); HEMOGLOBIN 12.7 g/dl (14.0-17.9); LYMPHOCYTES # (AUTO) 1.9 X10'3 (1.1-4.8); LYMPHOCYTES % (AUTO) 23.2 % (21-51); MEAN CORPUSCULAR HEMOGLOBIN 30.3 PG (27.0-31.0); MEAN CORPUSCULAR HGB CONC 32.8 g/dL (33.0-36.5); MEAN CORPUSCULAR VOLUME 92.4 FL (78-98); MEAN PLATELET VOLUME 8.5 FL (7.4-10.4); MONOCYTES # (AUTO) 0.8 X10'3 (0-0.9); MONOCYTES % (AUTO) 10.3 % (2-12); NEUTROPHILS # (AUTO) 4.9 X10'3 (1.8-7.7); PLATELET COUNT 263 X10'3 (140-440); RED BLOOD COUNT 4.21 X10'6 (4.70-6.10); RED CELL DISTRIBUTION WIDTH 14.7 % (11.5-14.5); WHITE BLOOD COUNT 8.1 X10'3 (4.5-11.0)
[2024-04-05 07:46] LABS: ALBUMIN 3.3 G/DL (3.4-5.0); ANION GAP 9 (8-16); BLOOD UREA NITROGEN 10 MG/DL (7-18); BUN/CREATININE RATIO 8.6 (10.0-20.0); CALCIUM 8.7 MG/DL (8.5-10.1); CHLORIDE 106 MMOL/L (99-107); CREATININE 1.16 MG/DL (0.60-1.10); GLUCOSE 138 MG/DL (70-104); POTASSIUM 3.8 MMOL/L (3.5-5.1); SODIUM 136 MMOL/L (135-145); TOTAL CARBON DIOXIDE 21.3 MMOL/L (24-32); eCRCL 62 ML/MIN; eGFR 63 ML/MIN
[2024-04-05 08:00] VITALS: RESP 20; O2SAT 98
[2024-04-05 09:00] VITALS: BP 96/56; PULSE 60; RESP 20; TEMP 98; O2SAT 98
[2024-04-05] MEDS ORDERED: TICA90TA PO (10:42)
== END 2024-04-05 12:00 | disposition home or self-care (01) | DRG 251 ==
LOC: ER 01:34 → ED HOLD 04:28 → PCU 3S 07:20 → CICU 2S 11:06 → PCU 3S 04-04 17:03
PROVIDERS: ADMIT Specialist; ATTEND Family Medicine
PROC: 02703ZZ Dilation of Coronary Artery, One Artery, Percutaneous Approach (ICD-10-PCS; principal; 2024-04-03)
PROC: 4A023N7 Measurement of Cardiac Sampling and Pressure, Left Heart, Percutaneous Approach (ICD-10-PCS; 2024-04-03)
PROC: B2111ZZ Fluoroscopy of Multiple Coronary Arteries using Low Osmolar Contrast (ICD-10-PCS; 2024-04-03)
PROC: B2151ZZ Fluoroscopy of Left Heart using Low Osmolar Contrast (ICD-10-PCS; 2024-04-03)
PROC: B2131ZZ Fluoroscopy of Multiple Coronary Artery Bypass Grafts using Low Osmolar Contrast (ICD-10-PCS; 2024-04-03)
DX: T82.898A Other specified complication of vascular prosthetic devices, implants and grafts, initial encounter (principal); I25.110 Atherosclerotic heart disease of native coronary artery with unstable angina pectoris; Y83.8 Other surgical procedures as the cause of abnormal reaction of the patient, or of later complication, without mention of misadventure at the time of the procedure; I10 Essential (primary) hypertension; J45.909 Unspecified asthma, uncomplicated; E78.5 Hyperlipidemia, unspecified; E11.9 Type 2 diabetes mellitus without complications; I25.2 Old myocardial infarction; Y92.89 Other specified places as the place of occurrence of the external cause; Z82.3 Family history of stroke; Z88.5 Allergy status to narcotic agent; Z79.82 Long term (current) use of aspirin; Z79.899 Other long term (current) drug therapy; Z79.84 Long term (current) use of oral hypoglycemic drugs
CPT/HCPCS: 36415; 71045; 76937; 80048; 82948; 83036; 83735; 83880; 84132; 84484; 85025; 85347; 85610; 85730; 92920; 93005; 93459; 97161; 99152; 99153; 99285; A4615; A6213; A6258; A6449; C1725; C1729; C1751; C1769; G0378; J0461; J1644; J1815; J2003; J2250; J2270; J3010; J3490; J7030; J7040; Q9967